=== PATIENT | male | born 1960 | race Caucasian/White ===

== ENCOUNTER → 2016-07-27 | Outpatient (CLI) | payer BC ==
[~2016-07-27] MED LIST: ASPI81TA28 PO; AZEL0.15 NAE; CETI10TA10 PO; DIPH25TA24 PO; MOME50SP5 NAE; PSYL55.43 PO
[2016-07-27 09:39] LABS: BASO % 0.4 %; BASO ABS # 0.02 K/uL (0-0.2); COMPLETE YES; EOS % 2.4 %; HEMATOCRIT 42.5 % (42-52); LYMPH % 31.7 %; MEAN CELL VOLUME 90.8 fL (80-100); MEAN CORPUSCULAR HEMOGLOBIN 30.3 pg (25-34); MEAN CORPUSCULAR HGB CONC 33.4 g/dl (32-36); MEAN PLATELET VOLUME 10.2 fL (7.4-10.4); MONO % 6.5 %; PLATELET COUNT 249 K/uL (130-400); RED BLOOD COUNT 4.68 M/uL (4.7-6.1); WHITE BLOOD COUNT 5.37 K/uL (4.8-10.8)
[2016-07-27 10:08] LABS: ALT/SGPT 37 U/L (12-78); AST/SGOT 13 U/L (15-37); BLOOD UREA NITROGEN 16 mg/dl (7-18); BUN/CREATININE RATIO 13.4 (10-20); CALCIUM 8.7 mg/dl (8.5-10.1); CARBON DIOXIDE 30 mmol/L (21-32); CHLORIDE 106 mmol/L (98-107); GLUCOSE 96 mg/dl (70-99); POTASSIUM 3.8 mmol/L (3.5-5.1); SODIUM 140 mmol/L (136-145)
[2016-07-27 10:19] LABS: ALB/GLOB RATIO 1.5 (0.9-2); ALKALINE PHOSPHATASE 44 U/L (45-117); CHOLESTEROL 177 mg/dl (0-200); CHOLESTEROL/HDL RATIO 2.9; HDL CHOLESTEROL 61 mg/dl; LDL CHOLESTEROL CALCULATED 102 mg/dl; PROSTATE SPECIFIC ANTIGEN 0.629 ng/ml (0.000-4.000); TRIGLYCERIDES 68 mg/dl (0-150); VERY LOW DENSITY LIPOPROT CALC 14 mg/dl
[2016-07-27 10:49] LABS: URINE APPEARANCE CLEAR (CLEAR); URINE BILIRUBIN NEG (NEG); URINE COLOR YELLOW; URINE EPITHELIAL CELL AUTO 0-5 /lpf (0-5); URINE NITRITE NEG (NEG); URINE SPECIFIC GRAVITY 1.008 (1.000-1.030); UROBILINOGEN NEG (NEG); ZZUR CULT IF INDIC CLEAN CATCH NO
[2016-07-27 11:09] LABS: MANUAL MICROSCOPIC REQUIRED? NO; REVIEW REQ? NO
== END | disposition home or self-care (01) ==
LOC: C.LAB 08:42
PROVIDERS: ATTEND Internal Medicine
DX: M54.16 Radiculopathy, lumbar region (principal); Z13.6 Encounter for screening for cardiovascular disorders; Z12.5 Encounter for screening for malignant neoplasm of prostate

== ENCOUNTER 2020-06-25 14:45 | Inpatient (IN) ==
[2020-06-25] MEDS ORDERED: dexAMETHasone**PF** 10 MG/ML VIAL IV ONE (17:45)
[2020-06-25] MEDS ORDERED: KETOROLAC TROMETHAMINE 15 MG/ML VIAL IV STA (17:45)
[2020-06-25] MEDS ORDERED: IPRATROPIUM BROMIDE/ALBUTEROL respimat INH INH STA (17:45)
[2020-06-25] MEDS ORDERED: ACETAMINOPHEN 1,000 MG/100 ML VIAL IV STA (17:45)
[2020-06-25] MEDS ORDERED: SODIUM CHLORIDE 0.9% 1000ML 2,000 ML IV ONE (17:45)
[2020-06-25] MEDS ORDERED: guaiFENesin 600 MG TABCR PO STA (17:46)
--- NOTE | 2020-06-25 18:08 | XRay Report ---
XR chest 1V portable HISTORY: 59 years-old Male Chest Pain acute atypical chest pain COMPARISON: Chest radiograph 06/23/2020 TECHNIQUE: Portable AP view of the chest FINDINGS: Cardiac silhouette is upper limits of normal in size. Progressively worsened bilateral subpleural pre dominant left greater than right pulmonary opacities. No pneumothorax, large pleural effusion or over t pulmonary edema. Bones appear grossly intact. IMPRESSION: Progressively worsened bilateral subpleural predominant pulmonary opacities suggestive of viral pneumonia. ACT 112: Negative or not required by law. The above report was generated using voice recognition software. It may contain grammatical, syntax o r spelling errors. Electronically signed by: Paresh Pascual M.D. 06/25/2020 6:06 PM
[2020-06-25 19:02] LABS: Hematocrit (blood only) 34.2 % (42-52); Hemoglobin 11.9 g/dL (14.0-18.0); Immature Granulocytes # (auto) 0.01 K/uL (0.00-0.02); Immature Granulocytes % (auto) 0.3 %; Lymphocytes % (auto) 15.2 %; Mean Corpuscular Hemoglobin 30.5 pg (25-34); Mean Corpuscular Hgb Conc 34.8 g/dL (32-36); Mean Corpuscular Volume 87.7 fL (80-100); Mean Platelet Volume 10.5 fL (7.4-10.4); Monocytes # (auto) 0.14 K/uL (0.11-0.59); Monocytes % (auto) 4.3 %; Neutrophils # (auto) 2.63 K/uL (1.4-6.5); Neutrophils % (auto) 80.2 %; Platelet Count 143 K/uL (130-400); RDW Coefficient of Variation 12.4 % (11.5-14.5); White Blood Count 3.28 K/uL (4.8-10.8)
[2020-06-25 19:25] LABS: Alanine Aminotransferase 29 U/L (12-78); Albumin Level 3.5 gm/dl (3.4-5.0); Aspartate Aminotransferase 22 U/L (15-37); BUN Creatinine Ratio 10.1 (10-20); Bilirubin Direct 0.1 mg/dl (0-0.2); Blood Urea Nitrogen 11 mg/dl (7-18); Carbon Dioxide 28 mmol/L (21-32); Chloride 106 mmol/L (98-107); Creatinine Clr Calc Pharmacy 84.7 ml/min; Est GFR (African American) 91.9; Est GFR (Non-African American) 79.3; Glucose 98 mg/dl (70-99); Lipase 190 U/L (73-393); Magnesium 2.1 mg/dl (1.8-2.4); Potassium 3.5 mmol/L (3.5-5.1); Sodium 139 mmol/L (136-145)
[2020-06-25 19:31] LABS: Albumin Globulin Ratio 1.3 (0.9-2); Alkaline Phosphatase 33 U/L (45-117); Bilirubin,Total 0.8 mg/dl (0.2-1); Creatine Kinase 75 U/L (39-308); Globulin 2.8 gm/dl (2.5-4.0); NT Pro B Type Natriuretic Pept 208 pg/ml (0-900); Phosphorus 2.8 mg/dl (2.5-4.9); Total Protein 6.3 gm/dl (6.4-8.2); Troponin I < 0.015 ng/ml (0-0.045)
[2020-06-25] MEDS ORDERED: OPTIRAY 320 125ml IV ONE (20:22)
--- NOTE | 2020-06-25 20:43 | CT Scan Report ---
CT angio chest PE protocol CT DOSE: 393.21 mGy.cm HISTORY: 59 years-old Male with Covid, hemoptysis, r/o PE. Acute shortness of breath with hemoptysi s. COVID Positive. TECHNIQUE: Multiple CTA images of the chest were obtained after the intravenous administration of Opt iray 320. Coronal and sagittal MIPS were obtained from the axial data set and were submitted for rev iew. All measurements were obtained according to NASCET criteria. A dose lowering technique was util ized adhering to the principles of ALARA. COMPARISON: Chest radiograph of same day, 06/23/2020 FINDINGS: CTA: The heart is normal in size. Moderate coronary artery calcifications. No thoracic aortic aneurysm or dissection. Reflux of contrast into the IVC. Suboptimal evaluation of the pulmonary artery secondary to respiratory motion artifact. No central pulmonary emboli identified. CT CHEST: Unremarkable thyroid. Mild mediastinal and hilar adenopathy with hilar lymph nodes measuring up to 12 mm and subcarinal lymph nodes measuring up to 11 mm. Trace pleural effusions. Moderate bilateral sub pleural predominant groundglass and consolidative opacities have progressively worsened from 1. No overt pulmonary edema or suspicious pulmonary nodules identified. Central airways appear patent . No pneumoperitoneum. No acute process of the imaged upper abdomen. Wall thickening of the mid and dis sukhjinder esophagus. Unremarkable soft tissues. There is no acute fracture. IMPRESSION: 1. Limited study secondary to respiratory motion artifact. No central pulmonary emboli identified. 2. Moderate subpleural predominant groundglass and airspace opacities of the lungs have progressively worsened from 06/23/2020 suggestive of viral pneumonia. 3. Trace pleural effusions. 4. Mild mediastinal and hilar adenopathy, likely reactive. ACT 112: Negative or not required by law. The above report was generated using voice recognition software. It may contain grammatical, syntax o r spelling errors. Electronically signed by: Paresh Pascual M.D. 06/25/2020 8:42 PM
--- NOTE | 2020-06-25 22:04 | History & Physical Report ---
Date of Service June 25, 2020 Assessment & Plan (1) Pneumonia due to COVID-19 virus: 59yo C male presenting with Covid-19 pneumonia, hypoxia. Patient is on day 9 of illness. Patient hypoxic requiring supplemental O2 -Admit to medical with telemetry -Maintain isolation precautions - contact and airborne -Supplemental O2 as needed -Check CRP, CK, Ddimer, Ferritin, Procalcitonin and LDH -Dexamethasone 6mg IV daily -Remdesevir per protocol -Albuterol, Tylenol, Tessalon PRN -Lovenox 40 BID for DVT ppx -Patient has been persistently febrile x 9 days and has been coughing up blood tinged sputum as well. Most likely secondary to Covid-19 PNA as well as systemic inflammation. Will cover with empiric antibiotics for possible CAP - Azithromycin and Ceftriaxone Present on Admission?: Yes (2) GERD (gastroesophageal reflux disease): Chronic. Stable -Continue Protonix F/E/N - Heplock. Monitor electrolytes. Regular diet as tolerated Ppx - Lovenox 40 BID Code - Full Dispo - Admit to medical Present on Admission?: Yes History of Present Illness Chief Complaint: Covid-19 Primary Care Provider: Francisco Ghotra MD Thomas Cantu is a healthy 59yo C male presenting with Covid-19. His symptoms began appx 9 days ago with fatigue, body aches, fever, cough and shortness of breath. Symptoms have persisted over the last 9 days. Patient states he has been febrile x 9 days. His cough and SOB have worsened over the last 2 days. He has been having heart palpitations as well. He states he occasionally coughs up small amounts of blood tinged sputum. He has been monitoring his oxygen saturation at home and reports that this AM he was 88% on room air. In the ER he was found to be tachypneic. Saturations 92% on room air. Patient dyspneic after ambulation with saturation of 87% ER Course: Tylenol, Albuterol, Guaifenesin, Dexamethasone, Toradol 15mg, NSS x 2L Allergies Allergy/AdvReac Type Severity Reaction Status Date / Time house dust Allergy Mild NASAL Verified 06/24/20 13:53 CONGESTION weed pollen Allergy Mild NASAL Verified 06/24/20 13:53 CONGESTION moxifloxacin [From Avelox] AdvReac Severe Rash Verified 06/24/20 13:53 cimetidine AdvReac Intermediate confusion, Verified 06/24/20 13:53 depression gluten AdvReac Intermediate BLOATING Verified 06/24/20 13:53 WITH WHEAT PRODUCTS Home Medications Medication Instructions Recorded Confirmed Type diphenhydramine HCl 25 mg capsule 25 mg PO HS PRN cap 11/09/18 06/25/20 History cetirizine 10 mg tablet 10 mg PO QAM #30 tab 06/25/19 06/25/20 Rx fluticasone propionate 1 sprays INTNAS BID 09/06/19 06/25/20 History albuterol sulfate 3 inh INHALATION Q6H #18 g 06/23/20 06/25/20 Rx aspirin 81 mg PO QAM 06/23/20 06/25/20 History azelastine 2 spray INTRANASAL DAILY PRN 06/23/20 06/25/20 History benzonatate [Tessalon Perles] 100 mg PO TID PRN #20 cap 06/23/20 06/25/20 Rx pantoprazole 40 mg PO QAM 06/23/20 06/25/20 History Past Med/Surg History Medical History Anemia GERD (gastroesophageal reflux disease) Surgical History H/O wisdom tooth extraction History of anesthesia reaction BLURRED VISION, SWEATS, DIZZINESS,NAUSEA, TUNNEL VISION, POST OP MOHS NOSE UNDER LOCAL [id number] [facility] D[facility] History of colonoscopy Incarcerated umbilical hernia (11/26/13) Status post Mohs surgery X 3-NOSE Family History (Updated 12/25/19 @ 11:22 by Cari Reardon MA) Father Diabetes Hypertension Heart disease Myocardial infarction Brother Myocardial infarction Mother Hyperlipidemia Hearing loss Breast cancer Denies family history of Ovarian cancer Prostate cancer Colorectal cancer Social History Smoking Status: Never smoker Second Hand Exposure: No; Hx Alcohol Use: Yes Alcohol type: beer Hx Substance Use: No Preferred Language: Occitan Communication Ability: Effective Visual Impairment: Limited Hearing Ability: Normal Batch Tank Controller Required: No Beliefs That Will Affect Care: None marital status: Current Living Situation: Spouse current occupational status: employed current occupation: sales engineer Feels Safe at Home: Yes Childhood Exposure to Second-Hand Smoke: No caffeine: Yes during the past year weight has: remained stable Dental Care, Regularly: Yes Physical Activity Frequency: Daily Seatbelt Use: always Sunscreen Use: Yes Assistive Devices: Contacts and Glasses Review of Systems Review of Systems: All systems reviewed & are unremarkable except as noted in HPI & below Physical Exam Physical Exam: General: patient resting comfortably, NAD, non-toxic in appearance, AA&O x 4 Skin: warm, dry, intact, no rashes or lesions HEENT: NC/AT, PERRL, EOMI, anicteric sclera, conjunctiva without injection, external ear normal to inspection and nontender, nares patent, moist mucus membranes, dentition intact, no oropharyngeal lesions, neck supple, trachea midline, no LAD, no thyromegaly, no JVD Heart: +S1/S2, regular, no m/r/g Lungs: equal air entry bilaterally, crackles in bilateral bases, no rhonchi or wheezes Abd: +BS, soft, NT/ND, no masses/organomegaly/ascites Ext: warm, 2+ pulses in UE/LE bilaterally, no clubbing/cyanosis or edema Neuro: nonfocal, patient AA&O x 4, speech intact, no facial droop, moving all extremities on command with equal strength 5/5 Results & Data Results & Data ([facility]) Vital Signs (Past 12 Hours) Vital Signs Temp Pulse Pulse Resp BP BP Pulse Ox 06/25/20 21:30 62 26 H 95 06/25/20 21:00 67 19 92 06/25/20 20:37 37.4 C 06/25/20 20:31 72 30 H 94 06/25/20 20:30 69 22 119/74 92 06/25/20 20:29 69 18 112/68 06/25/20 20:01 70 23 94 06/25/20 20:00 72 27 H 103/65 94 06/25/20 19:31 66 28 H 94 06/25/20 19:30 37.8 C H 69 29 H 119/68 94 06/25/20 19:01 90 34 H 91 06/25/20 19:00 73 32 H 110/71 95 06/25/20 18:52 72 29 H 113/73 95 06/25/20 18:47 63 22 113/73 95 06/25/20 18:30 65 36 H 99 06/25/20 18:22 63 98 06/25/20 18:00 63 30 H 98 06/25/20 17:30 66 28 H 96 06/25/20 17:13 57 L 31 H 95 06/25/20 17:06 72 24 95 06/25/20 15:14 36.8 C 74 20 115/68 95 Laboratory Results Lab Results 06/25/20 06/25/20 Range/Units 18:40 18:40 WBC 3.28 L (4.8-10.8) K/uL RBC 3.90 L (4.7-6.1) M/uL Hgb 11.9 L (14.0-18.0) g/dL Hct 34.2 L (42-52) % MCV 87.7 (80-100) fL MCH 30.5 (25-34) pg MCHC 34.8 (32-36) g/dL RDW Std Deviation 40.0 (36.4-46.3) fL RDW Coeff of Debo 12.4 (11.5-14.5) % Plt Count 143 (130-400) K/uL MPV 10.5 H (7.4-10.4) fL Immature Gran % (Auto) 0.3 % Neut % (Auto) 80.2 % Lymph % (Auto) 15.2 % Rosebud % (Auto) 4.3 % Eos % (Auto) 0.0 % Baso % (Auto) 0.0 % Neut # (Auto) 2.63 (1.4-6.5) K/uL Lymph # (Auto) 0.50 L (1.2-3.4) K/uL Rosebud # (Auto) 0.14 (0.11-0.59) K/uL Eos # (Auto) 0.00 (0-0.5) K/uL Baso # (Auto) 0.00 (0-0.2) K/uL Immature Gran # (Auto) 0.01 (0.00-0.02) K/uL Sodium 139 (136-145) mmol/L Potassium 3.5 (3.5-5.1) mmol/L Chloride 106 (98-107) mmol/L Carbon Dioxide 28 (21-32) mmol/L Anion Gap 5.0 (3-11) BUN 11 (7-18) mg/dl Creatinine 1.04 (0.6-1.4) mg/dl Est Cr Clr Drug Dosing 84.7 ml/min Est GFR ( Amer) 91.9 Est GFR (Non-Af Amer) 79.3 BUN/Creatinine Ratio 10.1 (10-20) Glucose 98 (70-99) mg/dl Calcium 8.0 L (8.5-10.1) mg/dl Phosphorus 2.8 (2.5-4.9) mg/dl Magnesium 2.1 (1.8-2.4) mg/dl Total Bilirubin 0.8 (0.2-1) mg/dl Direct Bilirubin 0.1 (0-0.2) mg/dl AST 22 (15-37) U/L ALT 29 (12-78) U/L Alkaline Phosphatase 33 L (45-117) U/L Total Creatine Kinase 75 (39-308) U/L Troponin I < 0.015 (0-0.045) ng/ml NT-Pro-B Natriuret Pep 208 (0-900) pg/ml Total Protein 6.3 L (6.4-8.2) gm/dl Albumin 3.5 (3.4-5.0) gm/dl Globulin 2.8 (2.5-4.0) gm/dl Albumin/Globulin Ratio 1.3 (0.9-2) Lipase 190 (73-393) U/L TSH 1.290 (0.300-4.500) uIu/ml Diagnostic Findings CT angio chest PE protocol CT DOSE: 393.21 mGy.cm HISTORY: 59 years-old Male with Covid, hemoptysis, r/o PE. Acute shortness of breath with hemoptysis. COVID Positive. TECHNIQUE: Multiple CTA images of the chest were obtained after the intravenous administration of Optiray 320. Coronal and sagittal MIPS were obtained from the axial data set and were submitted for review. All measurements were obtained according to NASCET criteria. A dose lowering technique was utilized adhering to the principles of ALARA. COMPARISON: Chest radiograph of same day, 06/23/2020 FINDINGS: CTA: The heart is normal in size. Moderate coronary artery calcifications. No thoracic aortic aneurysm or dissection. Reflux of contrast into the IVC. Suboptimal evaluation of the pulmonary artery secondary to respiratory motion artifact. No central pulmonary emboli identified. CT CHEST: Unremarkable thyroid. Mild mediastinal and hilar adenopathy with hilar lymph nodes measuring up to 12 mm and subcarinal lymph nodes measuring up to 11 mm. Trace pleural effusions. Moderate bilateral subpleural predominant groundglass and consolidative opacities have progressively worsened from 06/23/2020. No overt pulmonary edema or suspicious pulmonary nodules identified. Central airways appear patent. No pneumoperitoneum. No acute process of the imaged upper abdomen. Wall thickening of the mid and distal esophagus. Unremarkable soft tissues. There is no acute fracture. IMPRESSION: 1. Limited study secondary to respiratory motion artifact. No central pulmonary emboli identified. 2. Moderate subpleural predominant groundglass and airspace opacities of the lungs have progressively worsened from 06/23/2020 suggestive of viral pneumonia. 3. Trace pleural effusions. 4. Mild mediastinal and hilar adenopathy, likely reactive. ACT 112: Negative or not required by law. The above report was generated using voice recognition software. It may contain grammatical, syntax or spelling errors. Electronically signed by: Paresh Pascual M.D. 06/25/2020 8:42 PM Dictated: 06/25/202033Transcribed: 06/25/202033 XR chest 1V portable HISTORY: 59 years-old Male Chest Pain acute atypical chest pain COMPARISON: Chest radiograph 06/23/2020 TECHNIQUE: Portable AP view of the chest FINDINGS: Cardiac silhouette is upper limits of normal in size. Progressively worsened bilateral subpleural predominant left greater than right pulmonary opacities. No pneumothorax, large pleural effusion or overt pulmonary edema. Bones appear grossly intact. IMPRESSION: Progressively worsened bilateral subpleural predominant pulmonary opacities suggestive of viral pneumonia. ACT 112: Negative or not required by law. The above report was generated using voice recognition software. It may contain grammatical, syntax or spelling errors. Electronically signed by: Paresh Pascual M.D. 06/25/2020 6:06 PM Dictated: 06/25/201804Transcribed: 06/25/201804 ECG Additional Comments: NSR 69bpm, RW=291, QRS=96, GEu=998, no acute ischemic changes Code Status & VTE Plan VTE Prophylaxis Plan VTE Prophylaxis will be ordered: Yes PG Care Time/CCT Total # of Minutes Spent Total Time Spent with Patient: Total time spent is greater than 50% in coordin ation of care (as documented) at patient's floor/unit and/or counseling patient: Coding Level of Care Code 86571 Initial Inpt Care Lvl 2 Diagnoses Pneumonia due to COVID-19 virus U07.1; J12.82 GERD (gastroesophageal reflux disease) K21.9 Esophagitis presence: esophagitis presence not specified (1) GERD (gastroesophageal reflux disease) Esophagitis presence: esophagitis presence not specified Qualified Code(s): K21.9 - Gastro-esophageal reflux disease without esophagitis
--- NOTE | 2020-06-25 22:59 | Emergency Department Note ---
Impression & Plan Pneumonia due to COVID-19 virus, Low O2 saturation, Dyspnea on minimal exertion ED Provider Note NAME: BEKA GREENWOOD AGE: 59 SEX: M ARRIVES VIA: Walk-In INFORMANT: Patient, ED PROVIDER(S): Ashu Gordon MD CHIEF COMPLAINT: Covid-19, Shortness of breath PLAN: Disposition: Admit MEDICAL DECISION MAKING: The patient is a pleasant 59-year-old gentleman with a past medical history of GERD, prediabetes who presents emergency department with worsening congestion shortness of breath and ongoing fevers in the setting of being diagnosed with COVID-19 with symptoms that began approximately 9 days ago with positive Covid test on 06/20. He reports his O2 saturation was 88% today on his home pulse oximeter in the setting of his increased chest tightness with cough where he reports some blood-tinged sputum developing. He reports nausea but no vomiting. He denies abdominal pain but reports his stools have been loose. He denies any urinary symptoms. This is the patient's third visit to the emergency department in the past 3 days for his Covid symptoms initially on 06/23 and then yesterday 06/24. However, today he reports he is feeling even worse. On arrival the patient is anxious appearing uncomfortable, mildly dyspneic but no acute distress, afebrile with stable vital signs. His O2 saturation was mostly 95-96% on room air though with continued dyspnea and did decrease 94% and so given his dyspnea was placed on 2 L nasal cannula with some improvement though ultimately having O2 saturation as low as 91%. He appears clinically dry. He has scattered wheezes and is diminished at the bases. EKG without overt acute ischemia. Chest x-ray shows progressed multifocal pneumonia consistent with COVID-19. WBC 3.2 with lymphopenia of 0.5, H/H 11.9/34.2 and platelets 143K all similar to recent range of values in the setting of his COVID-19. Chemistry without metabolic acidosis. Electrolytes and LFTs unremarkable. Troponin negative/undetectable and BNP within normal limits. While patient did have a negative D-dimer yesterday given his report of hemoptysis CTA of the chest was performed and limited due to motion artifact but no central PE noted. His progressive multifocal pneumonia is further characterized. Given the patient's worsening dyspnea in the setting of COVID-19 with progression of infiltrates on imaging reasonable to admit the patient for further management. Patient agreed and preferred this. Case was discussed with SHAWN Russ hospitalist, who will evaluate the patient for admission. Triage Nursing notes reviewed and agree them. Prior medical records reviewed Vital Signs: reviewed and remarkable for low O2 saturation. Differential diagnosis: Reactive airway disease, pneumonia, pneumothorax, COPD, CHF, infections, cardiac ischemia, pulmonary embolism, musculoskeletal, gastrointestinal, as well as other pathologies. ER treatment provided: See below. Diagnostics interpreted by me: ECG: Normal sinus rhythm, 69 bpm, no ectopy, no overt ST elevation or depression, QTC 411, QRS 96. Cardiac Monitoring: An order for continuous cardiac monitoring was placed and demonstrated normal sinus rhythm, 69 bpm, no ectopy. Laboratory studies: See below Imaging studies: See below Consultations: SHAWN Russ hospitalist. HPI: The patient is a pleasant 59-year-old gentleman with a past medical history of GERD, prediabetes who presents emergency department with worsening congestion shortness of breath and ongoing fevers in the setting of being diagnosed with COVID-19 with symptoms that began approximately 9 days ago with positive Covid test on 06/20. He reports his O2 saturation was 88% today on his home pulse oximeter in the setting of his increased chest tightness with cough where he r eports some blood-tinged sputum developing. He reports nausea but no vomiting. He denies abdominal pain but reports his stools have been loose. He denies any urinary symptoms. This is the patient's third visit to the emergency department in the past 3 days for his Covid symptoms initially on 06/23 and then yesterday 06/24. However, today he reports he is feeling even worse. ROS: See above HPI for pertinent positives & negatives. A total of 10 systems reviewed and were otherwise negative. PAST MEDICAL HISTORY:See Below PAST SURGICAL HISTORY:See Below FAMILY HISTORY:See Below SOCIAL HISTORY:See Below HOME MEDICATIONS:See Below ALLERGIES:See Below VITALS:See Below PHYSICAL EXAMINATION: GENERAL: Awake, alert, fatigued-appearing, in no distress HENT: Normocephalic, atraumatic. Oropharynx with dry mucous membranes and otherwise unremarkable. EYES: Normal conjunctiva. Sclera non-icteric. NECK: Supple. No nuchal rigidity. FROM. No JVD. RESPIRATORY: Scattered wheezes and diminished at the bases. Mildly dyspneic without significant increased work of breathing. CARDIAC: Regular rate, normal rhythm. Extremities warm and well perfused. Pulses equal. ABDOMEN: Soft, non-distended. No tenderness to palpation. No rebound or guarding. No masses. RECTAL: Deferred. MUSCULOSKELETAL: Chest examination reveals no tenderness. The back is symmetrical on inspection without obvious abnormality. There is no CVA tenderness to palpation. No joint edema. LOWER EXTREMITIES: Calves are equal size bilaterally and non-tender. No edema. No discoloration. NEURO: Normal sensorium. No sensory or motor deficits noted. SKIN: No rash or jaundice noted. Ashu Gordon MD Past Med/Surg History Medical History Anemia GERD (gastroesophageal reflux disease) Surgical History H/O wisdom tooth extraction History of anesthesia reaction BLURRED VISION, SWEATS, DIZZINESS,NAUSEA, TUNNEL VISION, POST OP MOHS NOSE UNDER LOCAL [id number] [facility] History of colonoscopy Incarcerated umbilical hernia (11/26/13) Status post Mohs surgery X 3-NOSE Family History (Updated 12/25/19 @ 11:22 by Cari Reardon MA) Father Diabetes Hypertension Heart disease Myocardial infarction Brother Myocardial infarction Mother Hyperlipidemia Hearing loss Breast cancer Denies family history of Ovarian cancer Prostate cancer Colorectal cancer Social History Smoking Status: Never smoker Second Hand Exposure: No; Hx Alcohol Use: Yes Alcohol type: beer Hx Substance Use: No Preferred Language: Kyrgyz Communication Ability: Effective Visual Impairment: Limited Hearing Ability: Normal Wet Primer Powder Blender Required: No Beliefs That Will Affect Care: None marital status: Current Living Situation: Spouse current occupational status: employed current occupation: back end engineer Feels Safe at Home: Yes Childhood Exposure to Second-Hand Smoke: No caffeine: Yes during the past year weight has: remained stable Dental Care, Regularly: Yes Physical Activity Frequency: Daily Seatbelt Use: always Sunscreen Use: Yes Assistive Devices: Contacts and Glasses Allergies Allergies Allergy/AdvReac Type Severity Reaction Status Date / Time house dust Allergy Mild NASAL Verified 06/24/20 13:53 CONGESTION weed pollen Allergy Mild NASAL Verified 06/24/20 13:53 CONGESTION moxifloxacin [From Avelox] AdvReac Severe Rash Verified 06/24/20 13:53 cimetidine AdvReac Intermediate confusion, Verified 06/24/20 13:53 depression gluten AdvReac Intermediate BLOATING Verified 06/24/20 13:53 WITH WHEAT PRODUCTS Home Meds Home Medications Medication Instructions Recorded Confirmed diphenhydramine HCl 25 mg capsule 25 mg PO HS PRN cap 11/09/18 06/25/20 fluticasone propionate 1 sprays INTNAS BID 09/06/19 06/25/20 aspirin 81 mg PO QAM 06/23/20 06/25/20 azelastine 2 spray INTRANASAL DAILY PRN 06/23/20 06/25/20 pantoprazole 40 mg PO QAM 06/23/20 06/25/20 Previous Rx's Medication Instructions Recorded cetirizine 10 mg tablet 10 mg PO QAM #30 tab 06/25/19 albuterol sulfate 3 inh INHALATION Q6H #18 g 06/23/20 benzonatate [Tessalon Perles] 100 mg PO TID PRN #20 cap 06/23/20 Results & Data (ED) Vital Signs Vital Signs - 24 hr 06/25/20 15:14 06/25/20 17:06 06/25/20 17:13 Temperature 36.8 C Temperature Source Temporal Artery Scan Pulse Rate 74 72 57 L Pulse Rate [Left] Pulse Rate from SpO2 Sensor 58 L Respiratory Rate 20 24 31 H Respiratory Effort / Characteristics Short of Breath Respiratory Pattern Regular Blood Pressure 115/68 Blood Pressure [Left Arm] Blood Pressure Mean 83 Blood Pressure Mean [Left Arm] Blood Pressure Position [Left Arm] Pulse Oximetry 95 95 95 Oxygen Delivery Method Room Air Room Air Oxygen Flow Rate Sepsis Recent Fever Within 48 Hours No Sepsis New/Unexplained Change in Mental Status N/A Sepsis Action Taken by Nursing No Action Required 06/25/20 17:30 06/25/20 18:00 06/25/20 18:22 Temperature Temperature Source Pulse Rate 66 63 63 Pulse Rate [Left] Pulse Rate from SpO2 Sensor 66 63 Respiratory Rate 28 H 30 H Respiratory Effort / Characteristics Respiratory Pattern Blood Pressure Blood Pressure [Left Arm] Blood Pressure Mean Blood Pressure Mean [Left Arm] Blood Pressure Position [Left Arm] Pulse Oximetry 96 98 98 Oxygen Delivery Method Nasal Cannula Oxygen Flow Rate Sepsis Recent Fever Within 48 Hours Sepsis New/Unexplained Change in Mental Status Sepsis Action Taken by Nursing 06/25/20 18:30 06/25/20 18:47 06/25/20 18:52 Temperature Temperature Source Pulse Rate 65 63 Pulse Rate [Left] 72 Pulse Rate from SpO2 Sensor 65 66 Respiratory Rate 36 H 22 29 H Respiratory Effort / Characteristics Spontaneous Respiratory Pattern Blood Pressure 113/73 Blood Pressure [Left Arm] 113/73 Blood Pressure Mean 86 Blood Pressure Mean [Left Arm] 86 Blood Pressure Position [Left Arm] Lying Pulse Oximetry 99 95 95 Oxygen Delivery Method Nasal Cannula Oxygen Flow Rate 2 Sepsis Recent Fever Within 48 Hours Sepsis New/Unexplained Change in Mental Status Sepsis Action Taken by Nursing 06/25/20 19:00 06/25/20 19:01 06/25/20 19:30 Temperature 37.8 C H Temperature Source Oral Pulse Rate 73 90 69 Pulse Rate [Left] Pulse Rate from SpO2 Sensor 75 67 68 Respiratory Rate 32 H 34 H 29 H Respiratory Effort / Characteristics Respiratory Pattern Blood Pressure 110/71 119/68 Blood Pressure [Left Arm] Blood Pressure Mean 84 85 Blood Pressure Mean [Left Arm] Blood Pressure Position [Left Arm] Pulse Oximetry 95 91 94 Oxygen Delivery Method Oxygen Flow Rate Sepsis Recent Fever Within 48 Hours Sepsis New/Unexplained Change in Mental Status Sepsis Action Taken by Nursing 06/25/20 19:31 06/25/20 20:00 06/25/20 20:01 Temperature Temperature Source Pulse Rate 66 72 70 Pulse Rate [Left] Pulse Rate from SpO2 Sensor 66 73 70 Respiratory Rate 28 H 27 H 23 Respiratory Effort / Characteristics Respiratory Pattern Blood Pressure 103/65 Blood Pressure [Left Arm] Blood Pressure Mean 77 Blood Pressure Mean [Left Arm] Blood Pressure Position [Left Arm] Pulse Oximetry 94 94 94 Oxygen Delivery Method Oxygen Flow Rate Sepsis Recent Fever Within 48 Hours Sepsis New/Unexplained Change in Mental Status Sepsis Action Taken by Nursing 06/25/20 20:29 06/25/20 20:30 06/25/20 20:31 Temperature Temperature Source Pulse Rate 69 69 72 Pulse Rate [Left] Pulse Rate from SpO2 Sensor 70 73 Respiratory Rate 18 22 30 H Respiratory Effort / Characteristics Respiratory Pattern Blood Pressure 112/68 119/74 Blood Pressure [Left Arm] Blood Pressure Mean 82 89 Blood Pressure Mean [Left Arm] Blood Pressure Position [Left Arm] Pulse Oximetry 92 94 Oxygen Delivery Method Oxygen Flow Rate Sepsis Recent Fever Within 48 Hours Sepsis New/Unexplained Change in Mental Status Sepsis Action Taken by Nursing 06/25/20 20:37 06/25/20 21:00 06/25/20 21:30 Temperature 37.4 C Temperature Source Oral Pulse Rate 67 62 Pulse Rate [Left] Pulse Rate from SpO2 Sensor 67 63 Respiratory Rate 19 26 H Respiratory Effort / Characteristics Respiratory Pattern Blood Pressure Blood Pressure [Left Arm] Blood Pressure Mean Blood Pressure Mean [Left Arm] Blood Pressure Position [Left Arm] Pulse Oximetry 92 95 Oxygen Delivery Method Nasal Cannula Oxygen Flow Rate 2 Sepsis Recent Fever Within 48 Hours Sepsis New/Unexplained Change in Mental Status Sepsis Action Taken by Nursing Laboratory Data Attestation: I reviewed the patient's lab results. Result diagrams: 06/25/20 18:40 06/25/20 18:40 Lab Results 06/25/20 06/25/20 Range/Units 18:40 18:40 WBC 3.28 L (4.8-10.8) K/uL RBC 3.90 L (4.7-6.1) M/uL Hgb 11.9 L (14.0-18.0) g/dL Hct 34.2 L (42-52) % MCV 87.7 (80-100) fL MCH 30.5 (25-34) pg MCHC 34.8 (32-36) g/dL RDW Std Deviation 40.0 (36.4-46.3) fL RDW Coeff of Debo 12.4 (11.5-14.5) % Plt Count 143 (130-400) K/uL MPV 10.5 H (7.4-10.4) fL Immature Gran % (Auto) 0.3 % Neut % (Auto) 80.2 % Lymph % (Auto) 15.2 % [place] % (Auto) 4.3 % Eos % (Auto) 0.0 % Baso % (Auto) 0.0 % Neut # (Auto) 2.63 (1.4-6.5) K/uL Lymph # (Auto) 0.50 L (1.2-3.4) K/uL [place] # (Auto) 0.14 (0.11-0.59) K/uL Eos # (Auto) 0.00 (0-0.5) K/uL Baso # (Auto) 0.00 (0-0.2) K/uL Immature Gran # (Auto) 0.01 (0.00-0.02) K/uL Sodium 139 (136-145) mmol/L Potassium 3.5 (3.5-5.1) mmol/L Chloride 106 (98-107) mmol/L Carbon Dioxide 28 (21-32) mmol/L Anion Gap 5.0 (3-11) BUN 11 (7-18) mg/dl Creatinine 1.04 (0.6-1.4) mg/dl Est Cr Clr Drug Dosing 84.7 ml/min Est GFR ( Amer) 91.9 Est GFR (Non-Af Amer) 79.3 BUN/Creatinine Ratio 10.1 (10-20) Glucose 98 (70-99) mg/dl Calcium 8.0 L (8.5-10.1) mg/dl Phosphorus 2.8 (2.5-4.9) mg/dl Magnesium 2.1 (1.8-2.4) mg/dl Total Bilirubin 0.8 (0.2-1) mg/dl Direct Bilirubin 0.1 (0-0.2) mg/dl AST 22 (15-37) U/L ALT 29 (12-78) U/L Alkaline Phosphatase 33 L (45-117) U/L Total Creatine Kinase 75 (39-308) U/L Troponin I < 0.015 (0-0.045) ng/ml NT-Pro-B Natriuret Pep 208 (0-900) pg/ml Total Protein 6.3 L (6.4-8.2) gm/dl Albumin 3.5 (3.4-5.0) gm/dl Globulin 2.8 (2.5-4.0) gm/dl Albumin/Globulin Ratio 1.3 (0.9-2) Lipase 190 (73-393) U/L TSH 1.290 (0.300-4.500) uIu/ml Administered Medications Discontinued Medications Albuterol (Ipratropium Glidden/Albuterol Respimat Inh) 2 puffs INH NOW STA Stop: 06/25/20 17:46 Last Admin: 06/25/20 18:45 Dose: 2 puffs Documented by: [id number] Dexamethasone Sodium Phosphate (DexamethasonePf 10 Mg/Ml Vial) 10 mg IV NOW ONE Stop: 06/25/20 17:46 Last Admin: 03/31/21 18:44 Dose: 10 mg Documented by: [id number] Guaifenesin (Guaifenesin 600 Mg Tabcr) 600 mg PO NOW STA Stop: 06/25/20 17:47 Last Admin: 06/25/20 18:44 Dose: 600 mg Documented by: [id number] Sodium Chloride (Nss 1000ml) 2,000 mls @ 999 mls/hr IV .Q2H1M ONE Stop: 06/25/20 19:45 Last Infusion: 06/25/20 21:22 Dose: 0 mls/hr Documented by: [id number] Admin: 06/25/20 18:44 Dose: 999 mls/hr Documented by: [id number] Acetaminophen (Ofirmev) 1,000 mg in 100 mls @ 400 mls/hr IV NOW STA Stop: 06/25/20 17:59 Last Infusion: 06/25/20 19:31 Dose: 0 mls/hr Documented by: [id number] Admin: 06/25/20 18:44 Dose: 400 mls/hr Documented by: [id number] Ioversol (Optiray 320 125ml) 119 ml IV ONCE ONE Stop: 06/25/20 20:23 Last Admin: 06/25/20 20:23 Dose: 119 ml Documented by: [id number] Ketorolac Tromethamine (Ketorolac Tromethamine 15 Mg/Ml Vial) 15 mg IV NOW STA Stop: 06/25/20 17:46 Last Admin: 06/25/20 18:44 Dose: 15 mg Documented by: [id number] Imaging Data Radiologist's Impression: Chest X-Ray 06/25/20 17:41 XR chest 1V portable HISTORY: 59 years-old Male Chest Pain acute atypical chest pain COMPARISON: Chest radiograph 06/23/2020 TECHNIQUE: Portable AP view of the chest FINDINGS: Cardiac silhouette is upper limits of normal in size. Progressively worsened bilateral subpleural predominant left greater than right pulmonary opacities. No pneumothorax, large pleural effusion or overt pulmonary edema. Bones appear grossly intact. IMPRESSION: Progressively worsened bilateral subpleural predominant pulmonary opacities suggestive of viral pneumonia. ACT 112: Negative or not required by law. The above report was generated using voice recognition software. It may contain grammatical, syntax or spelling errors. Electronically signed by: Paresh Pascual M.D. 06/25/2020 6:06 PM Chest CTA 06/25/20 17:47 CT angio chest PE protocol CT DOSE: 393.21 mGy.cm HISTORY: 59 years-old Male with Covid, hemoptysis, r/o PE. Acute shortness of breath with hemoptysis. COVID Positive. TECHNIQUE: Multiple CTA images of the chest were obtained after the intravenous administration of Optiray 320. Coronal and sagittal MIPS were obtained from the axial data set and were submitted for review. All measurements were obtained according to NASCET criteria. A dose lowering technique was utilized adhering to the principles of ALARA. COMPARISON: Chest radiograph of same day, 06/23/2020 FINDINGS: CTA: The heart is normal in size. Moderate coronary artery calcifications. No thoracic aortic aneurysm or dissection. Reflux of contrast into the IVC. Suboptimal evaluation of the pulmonary artery secondary to respiratory motion artifact. No central pulmonary emboli identified. CT CHEST: Unremarkable thyroid. Mild mediastinal and hilar adenopathy with hilar lymph nodes measuring up to 12 mm and subcarinal lymph nodes measuring up to 11 mm. Trace pleural effusions. Moderate bilateral subpleural predominant groundglass and consolidative opacities have progressively worsened from 06/23/2020. No overt pulmonary edema or suspicious pulmonary nodules identified. Central airways appear patent. No pneumoperitoneum. No acute process of the imaged upper abdomen. Wall thickening of the mid and distal esophagus. Unremarkable soft tissues. There is no acute fracture. IMPRESSION: 1. Limited study secondary to respiratory motion artifact. No central pulmonary emboli identified. 2. Moderate subpleural predominant groundglass and airspace opacities of the lungs have progressively worsened from 06/23/2020 suggestive of viral pneumonia. 3. Trace pleural effusions. 4. Mild mediastinal and hilar adenopathy, likely reactive. ACT 112: Negative or not required by law. The above report was generated using voice recognition software. It may contain grammatical, syntax or spelling errors. Electronically signed by: Paresh Pascual M.D. 06/25/2020 8:42 PM Discharge Plan Visit Data Chief Complaint: Illness Stated Complaint: COVID POSITIVE/LOW OXYGEN LEVELS ED Provider: Ashu Gordon Discharge Problem: Pneumonia due to COVID-19 virus, Low O2 saturation, Dyspnea on minimal exertion Forms Stand Alone Forms: [employer] Prescriptions Prescriptions: No Action cetirizine 10 mg tablet 10 mg PO QAM Qty: 30 RF: 5 diphenhydramine HCl 25 mg capsule 25 mg PO HS PRN (Reason: allergy symptoms) RF: 0 fluticasone propionate 50 mcg/actuation spray,suspension 1 sprays INTNAS BID RF: 0 aspirin 81 mg Tablet,Delayed Release (Dr/Ec) 81 mg PO QAM RF: 0 pantoprazole 40 mg tablet,delayed release (DR/EC) 40 mg PO QAM RF: 0 azelastine 137 mcg (0.1 %) aerosol,spray 2 spray intranasal DAILY PRN (Reason: Allergy Symptoms) RF: 0 benzonatate [Tessalon Perles] 100 mg capsule 100 mg PO TID PRN (Reason: cough) Qty: 20 RF: 1 albuterol sulfate 90 mcg/actuation HFA aerosol inhaler 3 inh inhalation Q6H Qty: 18 RF: 2
[2020-06-26] MEDS ORDERED: REMDESIVIR 200 MG in SODIUM CHLORIDE 0.9% 210 ML IV ONE (00:09)
[2020-06-26] MEDS ORDERED: ONDANSETRON INJ 2 MG/ML 2 ML VIAL IV PRN (00:09)
[2020-06-26] MEDS ORDERED: AZITHROMYCIN 500 MG in DEXTROSE 5% 250 ML IV STA (00:09)
[2020-06-26] MEDS ORDERED: BENZONATATE 100 MG CAPSULE PO PRN (00:09)
[2020-06-26] MEDS ORDERED: ALBUTEROL HFA 8 GM INHALER INH PRN (00:09)
[2020-06-26] MEDS: ACETAMINOPHEN 325 MG TAB PO PRN ×2 (03:11→18:55)
[2020-06-26] MEDS: cefTRIAXone SODIUM 2,000 MG in DEXTROSE 5% 50 ML IV SCH (05:20)
[2020-06-26 07:15] LABS: Hematocrit (blood only) 32.2 % (42-52); Hemoglobin 11.3 g/dL (14.0-18.0); Lymphocytes # (auto) 0.32 K/uL (1.2-3.4); Lymphocytes % (auto) 17.8 %; Mean Corpuscular Hemoglobin 30.9 pg (25-34); Mean Corpuscular Hgb Conc 35.1 g/dL (32-36); Mean Platelet Volume 10.7 fL (7.4-10.4); Monocytes % (auto) 5.6 %; Neutrophils # (auto) 1.38 K/uL (1.4-6.5); Neutrophils % (auto) 76.6 %; Platelet Count 139 K/uL (130-400); RDW Coefficient of Variation 12.3 % (11.5-14.5); RDW Standard Deviation 39.8 fL (36.4-46.3); Red Blood Count 3.66 M/uL (4.7-6.1)
[2020-06-26 07:30] LABS: D Dimer 370 ug/L FEU (0-500)
[2020-06-26 07:43] LABS: Albumin Level 2.8 gm/dl (3.4-5.0); Aspartate Aminotransferase 18 U/L (15-37); Bilirubin Direct < 0.1 mg/dl (0-0.2); Blood Urea Nitrogen 9 mg/dl (7-18); C Reactive Protein 3.53 mg/dl (0-0.29); Calcium 7.5 mg/dl (8.5-10.1); Carbon Dioxide 26 mmol/L (21-32); Chloride 109 mmol/L (98-107); Creatinine Clr Calc Pharmacy 92.3 ml/min; Est GFR (African American) 103.9; Est GFR (Non-African American) 89.6; Glucose 161 mg/dl (70-99); Potassium 3.8 mmol/L (3.5-5.1); Sodium 139 mmol/L (136-145)
[2020-06-26 07:48] LABS: Alanine Aminotransferase 25 U/L (12-78); Alkaline Phosphatase 28 U/L (45-117); Bilirubin,Total 0.4 mg/dl (0.2-1); Creatine Kinase 74 U/L (39-308); Ferritin 282.7 ng/ml (8-388); Total Protein 5.7 gm/dl (6.4-8.2)
[2020-06-26] MEDS: dexAMETHasone 6 MG in SYRINGE 0 ML IV SCH (09:23)
[2020-06-26] MEDS: ENOXAPARIN INJ 40 MG/0.4 ML SYR SQ SCH ×2 (09:24→20:12)
[2020-06-26] MEDS: CETIRIZINE HCL 10 MG TABLET PO SCH (09:24)
[2020-06-26] MEDS: PANTOprazole 40 MG TAB PO SCH (09:24)
--- NOTE | 2020-06-26 10:43 | Electrocardiogram Report ---
Test Reason : Blood Pressure : / mmHG Vent. Rate : 069 BPM Atrial Rate : 069 BPM P-R Int : 200 ms QRS Dur : 096 ms QT Int : 384 ms P-R-T Axes : 044 006 017 degrees QTc Int : 411 ms Normal sinus rhythm possible Inferior infarct , age undetermined Abnormal ECG When compared with ECG of 24-JUN-2020 14:03, No significant change was found Confirmed by Francisco Levin ([id number]) on 06/26/2020 10:43:13 AM Referred By: REFERRED SELF Confirmed By:Pollo Levin
--- NOTE | 2020-06-26 11:08 | Hospitalist Progress Note ---
Date of Service June 26, 2020 Assessment & Plan (1) Pneumonia due to COVID-19 virus: 59yo C male presenting with Covid-19 pneumonia, hypoxia. Patient is on day 10 of illness. Patient hypoxic requiring supplemental O2 stable on 2L, no distress, eating a little more, drinking fluids continue dexamethasone 6mg IV daily, day 2 Remdesivir day 2 Zithromax and ceftriaxone day 2 Tylenol PRN supportive care try to wean oxygen as tolerated (2) Hypoxia: acute hypoxia, due to COVID 19 mildly tachypneic but no distress, no labored breathing stable on 2L wean as tolerated (3) Paroxysmal SVT (supraventricular tachycardia): frequent runs of HR in the 140s but then converts back to sinus bradycardia minimal symptoms but he is aware of alarms going off K is 3.6, Mg 2.1, troponin negative will consult cardiology use Lopressor 5mg IV q4 PRN only for sustained tachycardia, lasting more than a minute (4) Heart palpitations: see SVT above (5) GERD (gastroesophageal reflux disease): Chronic. Stable -Continue Protonix F/E/N - Heplock. Monitor electrolytes. Regular diet as tolerated Ppx - Lovenox 40 BID Code - Full Dispo - Admit to medical Admission and Anticipated Discharge Date Admission Date: June 25, 2020 Subjective patient doing well, he ambulated to the toilet, brushed his teeth, washed up, all without oxygen in place returned to bed and I checked his sats, he was 89%, placed on 2L, he was a little tachypneic but not in distress he says he ate breakfast this morning, first good meal he has had in a week no fever/chills, no chest pain, no diarrhea, no nausea he has a dry cough on the monitor he keeps having brief runs of atrial tachycardia, appears like SVT but never lasts more than a few seconds happening more frequently in the evening no symptoms of palpitations or chest pain, he is just aware of them due to the alarm sounding d/w RN, repeat BMP, mag, troponin and use Lopressor 5mg IV PRN for sustained tachycardia typically his HR is in the high 50's, sinus bradycardia, don't want to make him too slow at baseline will ask cardiology to see him tomorrow K is 3.6, Mg 2.1 and troponin < 0.015 Review of Systems Review of Systems: All systems reviewed & are unremarkable except as noted in Subjective Physical Exam Constitutional: WD/WN, vitals as above + ill appearing; no acute distress Neck: trachea midline, no thyromegaly Respiratory: normal respiratory effort, lungs clear to auscultation Cardiovascular: Rate/Rhythm: regular rhythm and + bradycardic Heart Sounds: normal S1 and normal S2; no murmur Extremities: normal capillary refill; no edema Gastrointestinal (Abdomen): normal bowel sounds, soft, nontender, no hepatosplenomegaly Musculoskeletal: no cyanosis or clubbing, extremities motor strength 5/5 Skin: no rashes, warm and dry Neurologic: patellar DTR's 2+ bilat, sensation intact and PERRL, EOMI, accommodation nl, no face palsy, no dysarthria Psychiatric: A+Ox3, euthymic affect Lymphatic: no cervical or axillary lymphadenopathy Results & Data Results & Data ([facility]) Vital Signs (Past 12 Hours) Vital Signs Temp Pulse Pulse Resp BP BP Pulse Ox 06/26/20 07:29 37.1 C 56 L 25 H 105/67 95 06/26/20 03:01 37.4 C 64 16 116/67 95 06/26/20 00:30 36.9 C 61 20 134/74 90 06/26/20 00:00 56 L 06/25/20 23:24 56 L 18 112/71 94 Laboratory Results Laboratory Results - last 24 hr 06/26/20 06/26/20 06/26/20 06:44 06:44 06:44 WBC 1.80 L RBC 3.66 L Hgb 11.3 L Hct 32.2 L MCV 88.0 MCH 30.9 MCHC 35.1 RDW Std Deviation 39.8 RDW Coeff of Debo 12.3 Plt Count 139 MPV 10.7 H Immature Gran % (Auto) 0.0 Neut % (Auto) 76.6 Lymph % (Auto) 17.8 [place] % (Auto) 5.6 Eos % (Auto) 0.0 Baso % (Auto) 0.0 Neut # (Auto) 1.38 L Lymph # (Auto) 0.32 L [place] # (Auto) 0.10 L Eos # (Auto) 0.00 Baso # (Auto) 0.00 Immature Gran # (Auto) 0.00 D-Dimer 370 Sodium 139 Potassium 3.8 Chloride 109 H Carbon Dioxide 26 Anion Gap 4.0 BUN 9 Creatinine 0.94 Est Cr Clr Drug Dosing 92.3 Est GFR ( Amer) 103.9 Est GFR (Non-Af Amer) 89.6 BUN/Creatinine Ratio 10.0 Glucose 161 H Calcium 7.5 L Magnesium Ferritin 282.7 Total Bilirubin 0.4 Direct Bilirubin < 0.1 AST 18 ALT 25 Alkaline Phosphatase 28 L Lactate Dehydrogenase Total Creatine Kinase 74 Troponin I C-Reactive Protein 3.53 H Total Protein 5.7 L Albumin 2.8 L Procalcitonin 06/26/20 06/26/20 06/26/20 06:44 06:44 19:04 WBC RBC Hgb Hct MCV MCH MCHC RDW Std Deviation RDW Coeff of Debo Plt Count MPV Immature Gran % (Auto) Neut % (Auto) Lymph % (Auto) [place] % (Auto) Eos % (Auto) Baso % (Auto) Neut # (Auto) Lymph # (Auto) [place] # (Auto) Eos # (Auto) Baso # (Auto) Immature Gran # (Auto) D-Dimer Sodium 140 Potassium 3.6 Chloride 110 H Carbon Dioxide 27 Anion Gap 4.0 BUN 14 D Creatinine 1.07 Est Cr Clr Drug Dosing 81.1 Est GFR ( Amer) 88.8 Est GFR (Non-Af Amer) 76.7 BUN/Creatinine Ratio 12.6 Glucose 152 H Calcium 7.8 L Magnesium 2.1 Ferritin Total Bilirubin Direct Bilirubin AST ALT Alkaline Phosphatase Lactate Dehydrogenase 251 H Total Creatine Kinase Troponin I < 0.015 C-Reactive Protein Total Protein Albumin Procalcitonin 0.05 Medications Administered Current Inpatient Medications Acetaminophen (Acetaminophen 325 Mg Tab) 650 mg PO Q6H PRN PRN Reason: pain or fever Stop: 07/26/20 00:08 Last Admin: 06/26/20 18:55 Dose: 650 mg Documented by: Albuterol (Albuterol Hfa 8 Gm Inhaler) 3 puffs INH Q4H PRN PRN Reason: sob Stop: 07/26/20 00:08 Benzonatate (Benzonatate 100 Mg Capsule) 100 mg PO TID PRN PRN Reason: cough Stop: 07/26/20 00:08 Last Admin: 06/26/20 18:56 Dose: 100 mg Documented by: Cetirizine HCl (Cetirizine Hcl 10 Mg Tablet) 10 mg PO QAM [facility] Stop: 07/26/20 08:59 Last Admin: 06/26/20 09:24 Dose: 10 mg Documented by: Enoxaparin Sodium (Enoxaparin Inj 40 Mg/0.4 Ml Syr) 40 mg SQ Q12H [facility] Stop: 07/26/20 08:59 Last Admin: 06/26/20 20:12 Dose: 40 mg Documented by: Dexamethasone 6 mg/ Syringe 1.5 mls @ 1 mls/min IV Q24H [facility] Stop: 07/26/20 08:59 Last Admin: 06/26/20 09:23 Dose: 1 mls/min Documented by: Remdesivir 100 mg/ Sodium (Chloride) 250 mls @ 250 mls/hr IV Q24H [facility]; Protocol Stop: 06/30/20 12:59 Azithromycin 250 mg/ Dextrose 252.5 mls @ 125 mls/hr IV Q24H [facility] Stop: 07/02/20 02:02 Ceftriaxone Sodium 2,000 mg/ (Dextrose) 70 mls @ 100 mls/hr IV Q24H [facility]; Protocol Stop: 07/03/20 01:59 Last Infusion: 06/26/20 06:02 Dose: Infused Documented by: Metoprolol Tartrate (Metoprolol Tartrate 1 Mg/Ml Vial) 5 mg IV Q4 PRN PRN Reason: tachycardia Stop: 07/26/20 19:59 Ondansetron HCl (Ondansetron Inj 2 Mg/Ml 2 Ml Vial) 4 mg IV Q6H PRN PRN Reason: Nausea Stop: 07/26/20 00:08 Pantoprazole Sodium (Pantoprazole 40 Mg Tab) 40 mg PO QAM [facility] Stop: 07/26/20 08:59 Last Admin: 06/26/20 09:24 Dose: 40 mg Documented by: Sodium Chloride (Sodium Chloride 0.9% 10ml Flush) 30 ml IV Q24H [facility] Stop: 06/30/20 12:01 PG Care Time/CCT Total # of Minutes Spent Total Time Spent with Patient: Total time spent is greater than 50% in coordination of care (as documented) at patient's floor/unit and/or counseling patient: Coding Level of Care Code 97473 Subseq Hosp Care Lvl 3 Diagnoses Pneumonia due to COVID-19 virus U07.1; J12.82 Hypoxia R09.02 Paroxysmal SVT (supraventricular tachycardia) I47.1 Heart palpitations R00.2 GERD (gastroesophageal reflux disease) K21.9 Esophagitis presence: esophagitis presence not specified (1) GERD (gastroesophageal reflux disease) Esophagitis presence: esophagitis presence not specified Qualified Code(s): K21.9 - Gastro-esophageal reflux disease without esophagitis
[2020-06-26] MEDS ORDERED: METOPROLOL TARTRATE 1 MG/ML VIAL IV PRN (18:49)
[2020-06-26 19:47] LABS: BUN Creatinine Ratio 12.6 (10-20); Blood Urea Nitrogen 14 mg/dl (7-18); Calcium 7.8 mg/dl (8.5-10.1); Carbon Dioxide 27 mmol/L (21-32); Chloride 110 mmol/L (98-107); Creatinine Clr Calc Pharmacy 81.1 ml/min; Est GFR (African American) 88.8; Est GFR (Non-African American) 76.7; Glucose 152 mg/dl (70-99); Magnesium 2.1 mg/dl (1.8-2.4); Potassium 3.6 mmol/L (3.5-5.1); Sodium 140 mmol/L (136-145)
[2020-06-26 19:51] LABS: Troponin I < 0.015 ng/ml (0-0.045)
[2020-06-26] MEDS: AZITHROMYCIN 250 MG in DEXTROSE 5% 250 ML IV SCH (23:50)
[2020-06-27] MEDS: cefTRIAXone SODIUM 2,000 MG in DEXTROSE 5% 50 ML IV SCH (01:57)
[2020-06-27 07:19] LABS: BUN Creatinine Ratio 17.6 (10-20); Calcium 7.6 mg/dl (8.5-10.1); Creatinine Clr Calc Pharmacy 92.3 ml/min; Est GFR (African American) 103.9; Est GFR (Non-African American) 89.6; Magnesium 2.2 mg/dl (1.8-2.4); Potassium 3.8 mmol/L (3.5-5.1)
[2020-06-27] MEDS: CETIRIZINE HCL 10 MG TABLET PO SCH (08:07)
[2020-06-27] MEDS: PANTOprazole 40 MG TAB PO SCH (08:07)
[2020-06-27] MEDS: dexAMETHasone 6 MG in SYRINGE 0 ML IV SCH (08:07)
[2020-06-27] MEDS: ENOXAPARIN INJ 40 MG/0.4 ML SYR SQ SCH ×2 (08:07→21:55)
--- NOTE | 2020-06-27 09:50 | Hospitalist Progress Note ---
Date of Service June 27, 2020 Assessment & Plan (1) Pneumonia due to COVID-19 virus: 59yo C male presenting with Covid-19 pneumonia, hypoxia. Patient is on day 11 of illness. Patient hypoxic requiring supplemental O2 stable on 2L for two days now, no distress, eating a lot more, drinking fluids continue dexamethasone 6mg IV daily, day 3 Remdesivir day 3 Zithromax and ceftriaxone day 3 Tylenol PRN supportive care try to wean oxygen as tolerated anticipate he will be here the weekend, ready to go on Tuesday/Tuesday depending on oxygen requirements (2) Hypoxia: acute hypoxia, due to COVID 19 mildly tachypneic but no distress, no labored breathing stable on 2L again today wean as tolerated (3) Paroxysmal SVT (supraventricular tachycardia): frequent runs of HR in the 140s but then converts back to sinus bradycardia, happened on 06/26 minimal symptoms but he is aware of alarms going off K is 3.8, Mg 2.2, troponin negative will consult cardiology use Lopressor 5mg IV q4 PRN only for sustained tachycardia, lasting more than a minute could be myocarditis or perhaps strain from coughing, labored breathing currently he is NSR/sinus bertin, no issues since 10pm last night (4) Heart palpitations: see SVT above (5) GERD (gastroesophageal reflux disease): Chronic. Stable -Continue Protonix F/E/N - Heplock. Monitor electrolytes. Regular diet as tolerated Ppx - Lovenox 40 BID Code - Full Dispo - Admit to medical Admission and Anticipated Discharge Date Admission Date: June 25, 2020 Subjective feeling a little better, breathing fine at rest, coughing less, no sputum production, no fever no diarrhea or vomiting, eating a lot better the past 24 hours reviewed tele, no SVT since 10pm last night, might have been coughing and dyspnea that triggered the episodes discussed that COVID can affect the heart sometimes with myocarditis/pericarditis will ask cardiology to see currently he is NSR, sinus bertin with rates 50-60's labs reviewed, K is 3.8, Cr normal, Mag normal, troponin last night was negative Review of Systems Review of Systems: All systems reviewed & are unremarkable except as noted in Subjective Physical Exam Constitutional: WD/WN, vitals as above no acute distress Neck: trachea midline, no thyromegaly Respiratory: normal respiratory effort, lungs clear to auscultation Cardiovascular: Rate/Rhythm: regular rhythm and + bradycardic Heart Sounds: normal S1 and normal S2; no murmur Extremities: normal capillary refill; no edema Gastrointestinal (Abdomen): normal bowel sounds, soft, nontender, no hepatosplenomegaly Musculoskeletal: no cyanosis or clubbing, extremities motor strength 5/5 Skin: no rashes, warm and dry Neurologic: patellar DTR's 2+ bilat, sensation intact and PERRL, EOMI, accommodation nl, no face palsy, no dysarthria Psychiatric: A+Ox3, euthymic affect Lymphatic: no cervical or axillary lymphadenopathy Results & Data Results & Data ([facility]) Vital Signs (Past 12 Hours) Vital Signs Temp Pulse Pulse Resp BP Pulse Ox 06/27/20 08:05 36.9 C 54 L 20 116/67 93 06/27/20 07:51 52 L 06/27/20 04:00 36.8 C 56 L 20 114/74 95 06/26/20 23:00 36.6 C 60 53 L 20 109/65 95 Laboratory Results Laboratory Results - last 24 hr 06/26/20 06/27/20 19:04 05:28 Sodium 140 142 Potassium 3.6 3.8 Chloride 110 H 111 H Carbon Dioxide 27 27 Anion Gap 4.0 4.0 BUN 14 D 17 Creatinine 1.07 0.94 Est Cr Clr Drug Dosing 81.1 92.3 Est GFR ( Amer) 88.8 103.9 Est GFR (Non-Af Amer) 76.7 89.6 BUN/Creatinine Ratio 12.6 17.6 Glucose 152 H 128 H Calcium 7.8 L 7.6 L Magnesium 2.1 2.2 Troponin I < 0.015 Medications Administered Current Inpatient Medications Acetaminophen (Acetaminophen 325 Mg Tab) 650 mg PO Q6H PRN PRN Reason: pain or fever Stop: 07/26/20 00:08 Last Admin: 06/26/20 18:55 Dose: 650 mg Documented by: Albuterol (Albuterol Hfa 8 Gm Inhaler) 3 puffs INH Q4H PRN PRN Reason: sob Stop: 07/26/20 00:08 Benzonatate (Benzonatate 100 Mg Capsule) 100 mg PO TID PRN PRN Reason: cough Stop: 07/26/20 00:08 Last Admin: 06/26/20 18:56 Dose: 100 mg Documented by: Cetirizine HCl (Cetirizine Hcl 10 Mg Tablet) 10 mg PO QAM [facility] Stop: 07/26/20 08:59 Last Admin: 06/27/20 08:07 Dose: 10 mg Documented by: Enoxaparin Sodium (Enoxaparin Inj 40 Mg/0.4 Ml Syr) 40 mg SQ Q12H [facility] Stop: 07/26/20 08:59 Last Admin: 06/27/20 08:07 Dose: 40 mg Documented by: Dexamethasone 6 mg/ Syringe 1.5 mls @ 1 mls/min IV Q24H [facility] Stop: 07/26/20 08:59 Last Admin: 06/27/20 08:07 Dose: 1 mls/min Documented by: Remdesivir 100 mg/ Sodium (Chloride) 250 mls @ 250 mls/hr IV Q24H [facility]; Protocol Stop: 06/30/20 12:59 Azithromycin 250 mg/ Dextrose 252.5 mls @ 125 mls/hr IV Q24H [facility] Stop: 07/02/20 02:02 Last Infusion: 06/27/20 01:59 Dose: Infused Documented by: Ceftriaxone Sodium 2,000 mg/ (Dextrose) 70 mls @ 100 mls/hr IV Q24H [facility]; Protocol Stop: 07/03/20 01:59 Last Infusion: 06/27/20 02:40 Dose: Infused Documented by: Metoprolol Tartrate (Metoprolol Tartrate 1 Mg/Ml Vial) 5 mg IV Q4 PRN PRN Reason: tachycardia Stop: 07/26/20 19:59 Ondansetron HCl (Ondansetron Inj 2 Mg/Ml 2 Ml Vial) 4 mg IV Q6H PRN PRN Reason: Nausea Stop: 07/26/20 00:08 Pantoprazole Sodium (Pantoprazole 40 Mg Tab) 40 mg PO QAM [facility] Stop: 07/26/20 08:59 Last Admin: 06/27/20 08:07 Dose: 40 mg Documented by: Sodium Chloride (Sodium Chloride 0.9% 10ml Flush) 30 ml IV Q24H [facility] Stop: 06/30/20 12:01 PG Care Time/CCT Total # of Minutes Spent Total Time Spent with Patient: Total time spent is greater than 50% in coordination of care (as documented) at patient's floor/unit and/or counseling patient: Coding Level of Care Code 74146 Subseq Hosp Care Lvl 2 Diagnoses Pneumonia due to COVID-19 virus U07.1; J12.82 Hypoxia R09.02 Paroxysmal SVT (supraventricular tachycardia) I47.1 Heart palpitations R00.2 GERD (gastroesophageal reflux disease) K21.9 Esophagitis presence: esophagitis presence not specified (1) GERD (gastroesophageal reflux disease) Esophagitis presence: esophagitis presence not specified Qualified Code(s): K21.9 - Gastro-esophageal reflux disease without esophagitis
[2020-06-27] MEDS: REMDESIVIR 100 MG in SODIUM CHLORIDE 0.9% 230 ML IV SCH (11:27)
[2020-06-27] MEDS: SODIUM CHLORIDE 0.9% 10ML FLUSH IV SCH (13:14)
--- NOTE | 2020-06-27 13:27 | Cardiology Consultation ---
Date of Consultation June 27, 2020 Assessment & Plan (1) Paroxysmal SVT (supraventricular tachycardia): -demonstrates numerous brief episodes of an SVT. -according to his history, this was not present prior to his COVID 19 infection. -echocardiogram on hold as troponin I levels are undetectable. (2) Heart palpitations: -also demonstrates PVCs, fusion beats, and PACs. (3) Pneumonia due to COVID-19 virus: -likely cause of his atrial dysrhythmias. -management per Dr. Rebollar. History of Present Illness Attending Physician: Van Rebollar, DO History of Present Illness Mr. Cantu is a 59-year-old male admitted on June 25 with COVID pneumonia. The patient has demonstrated some atrial dysrhythmias, and therefore, this consultation was ordered. The patient was in his usual state of health until he was diagnosed with a symptomatic COVID infection on June 16. Unfortunately, the patient's symptoms became progressive requiring 2 other emergency room evaluations for shortness of breath. The patient was also complaining of intermittent palpitations. An EKG performed on June 24 evaluation noted a PVC, fusion beats, and an atrial triplet. I did discuss his case with Nicolasa Monteiro PA-C from the emergency room on that day. We decided to arrange outpatient follow-up. On the morning of admission, the patient noted a significant amount of short- lived palpitations. Review of the monitor as noted many brief episodes of an SVT. Prior to his COVID infection, the patient never experienced palpitations. He was also on a vigorous exercise program which included lifting weights and bicycling. He did not experience exertional chest pain or limiting dyspnea at that time. He further denies syncope, presyncope, PND, orthopnea, lower extremity edema, and claudication. The patient has never known of a cardiac event. He has never had a cardiac catheterization or stress test. Past medical and surgical history 1. GERD 2. Umbilical hernia repair-November 2013 3. History of Mohs surgery Social history and lives with his Works as a software project engineer No tobacco Social alcohol Family history No early coronary artery disease Review of systems A 10 point review systems was negative except that described above. Allergies Allergy/AdvReac Type Severity Reaction Status Date / Time house dust Allergy Mild NASAL Verified 06/24/20 13:53 CONGESTION weed pollen Allergy Mild NASAL Verified 06/24/20 13:53 CONGESTION moxifloxacin [From Avelox] AdvReac Severe Rash Verified 06/24/20 13:53 cimetidine AdvReac Intermediate confusion, Verified 06/24/20 13:53 depression gluten AdvReac Intermediate BLOATING Verified 06/24/20 13:53 WITH WHEAT PRODUCTS Home Medications Medication Instructions Recorded Confirmed Type diphenhydramine HCl 25 mg capsule 25 mg PO HS PRN cap 11/09/18 06/25/20 History cetirizine 10 mg tablet 10 mg PO QAM #30 tab 06/25/19 06/25/20 Rx fluticasone propionate 1 sprays INTNAS BID 09/06/19 06/25/20 History albuterol sulfate 3 inh INHALATION Q6H #18 g 06/23/20 06/25/20 Rx aspirin 81 mg PO QAM 06/23/20 06/25/20 History azelastine 2 spray INTRANASAL DAILY PRN 06/23/20 06/25/20 History benzonatate [Tessalon Perles] 100 mg PO TID PRN #20 cap 06/23/20 06/25/20 Rx pantoprazole 40 mg PO QAM 06/23/20 06/25/20 History Patient History Medical History Anemia GERD (gastroesophageal reflux disease) Surgical History H/O wisdom tooth extraction History of anesthesia reaction BLURRED VISION, SWEATS, DIZZINESS,NAUSEA, TUNNEL VISION, POST OP MOHS NOSE UNDER LOCAL [id number] [facility] History of colonoscopy Incarcerated umbilical hernia (11/26/13) Status post Mohs surgery X 3-NOSE Family History (Updated 12/25/19 @ 11:22 by Cari Reardon MA) Father Diabetes Hypertension Heart disease Myocardial infarction Brother Myocardial infarction Mother Hyperlipidemia Hearing loss Breast cancer Denies family history of Ovarian cancer Prostate cancer Colorectal cancer Social History Smoking Status: Never smoker Second Hand Exposure: No; Hx Alcohol Use: No Hx Substance Use: No Preferred Language: Portuguese Communication Ability: Effective Visual Impairment: Limited Hearing Ability: Normal Completion Engineer Required: No Beliefs That Will Affect Care: None marital status: Current Living Situation: Family current occupational status: employed current occupation: electrical engineering designer Feels Safe at Home: Yes Childhood Exposure to Second-Hand Smoke: No caffeine: Yes during the past year weight has: remained stable Dental Care, Regularly: Yes Physical Activity Frequency: Daily Seatbelt Use: always Sunscreen Use: Yes Assistive Devices: Glasses and Oxygen - Continuous Physical Exam Physical Exam: Exam per Dr. Rebollar. Patient in COVID-19 isolation. Results & Data ([facility]) Vital Signs (Past 12 Hours) Vital Signs Temp Pulse Pulse Resp BP Pulse Ox 06/27/20 10:32 36.8 C 56 L 19 111/69 94 06/27/20 08:05 36.9 C 54 L 20 116/67 93 06/27/20 07:51 52 L 06/27/20 04:00 36.8 C 56 L 20 114/74 95 Laboratory Results CBC notes hemoglobin of 11.3, hematocrit 32.2, white count 1.8, platelet count [id number]. Electrolytes note a sodium of 142, potassium 3.8, chloride 111, bicarb 27, BUN 17, creatinine 0.94, glucose of 128. Magnesium level is normal at 2.2. Troponin I level is less than 0.015 x 3. TSH is normal at 1.29. BNP is normal at 208. Diagnostic Findings EKG done June 24 noted a PVC, a fusion be, an atrial triplet. EKG done the 25 of June noted sinus rhythm and a possible old inferior myocardial infarction. Chest x-ray notes diffuse bilateral infiltrates. PG Care Time/CCT Total # of Minutes Spent Total Time Spent with Patient: Total time spent is greater than 50% in coordination of care (as documented) at patient's floor/unit and/or counseling patient: Coding Level of Care Code 62406 Inpt Consult Level 4 Diagnoses Paroxysmal SVT (supraventricular tachycardia) I47.1 Heart palpitations R00.2 Pneumonia due to COVID-19 virus U07.1; J12.82
[2020-06-27] MEDS ORDERED: POLYETHYLENE (MIRALAX) 17 GM PACK PO PRN (23:42)
[2020-06-27] MEDS ORDERED: bisacodyL 10 MG SUPP PR PRN (23:42)
[2020-06-27] MEDS ORDERED: POLYETHYLENE (MIRALAX) 17 GM PACK PO ONE (23:43)
[2020-06-28] MEDS: AZITHROMYCIN 250 MG in DEXTROSE 5% 250 ML IV SCH ×2 (00:30→23:24)
[2020-06-28] MEDS: cefTRIAXone SODIUM 2,000 MG in DEXTROSE 5% 50 ML IV SCH (02:50)
[2020-06-28 07:02] LABS: BUN Creatinine Ratio 17.6 (10-20); Calcium 7.5 mg/dl (8.5-10.1); Creatinine Clr Calc Pharmacy 94.4 ml/min; Est GFR (African American) 106.6; Potassium 3.6 mmol/L (3.5-5.1)
--- NOTE | 2020-06-28 07:36 | Hospitalist Progress Note ---
Date of Service June 28, 2020 Assessment & Plan (1) Pneumonia due to COVID-19 virus: 59yo C male presenting with Covid-19 pneumonia, hypoxia. Patient is on day 11 of illness. Patient hypoxic requiring supplemental O2 stable on 2L for three days now, no distress, eating a lot more, drinking fluids continue dexamethasone 6mg IV daily, day 4 Remdesivir day 4 Zithromax and ceftriaxone day 4 Tylenol PRN supportive care try to wean oxygen as tolerated anticipate he will be ready for discharge early to mid week next week (2) Hypoxia: acute hypoxia, due to COVID 19 mildly tachypneic but no distress, no labored breathing stable on 2L since admission, but cannot get him down to room air try to wean as tolerated (3) Paroxysmal SVT (supraventricular tachycardia): frequent runs of HR in the 140s but then converts back to sinus bradycardia, happened on 06/26 minimal symptoms but he is aware of alarms going off K is 3.6, troponin negative will consult cardiology -- get echo after discharge, likely that pneumonia is triggering the SVT could be myocarditis or perhaps strain from coughing, labored breathing currently he is NSR/sinus bertin, no issues since 10pm on 06/26 (4) Heart palpitations: see SVT above (5) GERD (gastroesophageal reflux disease): Chronic. Stable -Continue Protonix F/E/N - Heplock. Monitor electrolytes. Regular diet as tolerated Ppx - Lovenox 40 BID Code - Full Dispo - Admit to medical (6) Constipated: no success with Miralax, can increase to BID until he moves bowels warm prune juice with butter push oral fluids Admission and Anticipated Discharge Date Admission Date: June 25, 2020 Subjective patient c/o feeling dry in his nose, will get him saline spray c/o constipation, feeling a little bloated, tried Miralax and RN got him prune juice still feeling fatigued, short of breath on exertion no fever, no cough, no chest pain, no diarrhea, no vomiting labs reviewed, Cr is 0.9, BUN 16, K 3.6 discussed that he will be here a few more days no SVT on monitor, discussed that we can get an echo after discharge, likely the COVID triggering the SVT, d/w cardiology, Dr. Ch Review of Systems Review of Systems: All systems reviewed & are unremarkable except as noted in Subjective Physical Exam Constitutional: WD/WN, vitals as above no acute distress Neck: trachea midline, no thyromegaly Respiratory: normal respiratory effort, lungs clear to auscultation Cardiovascular: Rate/Rhythm: regular rhythm and + bradycardic Heart Sounds: normal S1 and normal S2; no murmur Extremities: normal capillary refill; no edema Gastrointestinal (Abdomen): normal bowel sounds, soft, nontender, no hepatosplenomegaly Musculoskeletal: no cyanosis or clubbing, extremities motor strength 5/5 Skin: no rashes, warm and dry Neurologic: patellar DTR's 2+ bilat, sensation intact and PERRL, EOMI, accommodation nl, no face palsy, no dysarthria Psychiatric: A+Ox3, euthymic affect Lymphatic: no cervical or axillary lymphadenopathy Results & Data Results & Data ([facility]) Vital Signs (Past 12 Hours) Vital Signs Temp Pulse Pulse Resp BP Pulse Ox 06/28/20 03:25 37.4 C 51 L 20 107/62 95 06/27/20 23:06 37.3 C 53 L 20 114/69 93 06/27/20 22:20 51 L 06/27/20 19:38 36.9 C 54 L 20 107/65 96 Laboratory Results Laboratory Results - last 24 hr 06/28/20 06:13 Sodium 141 Potassium 3.6 Chloride 108 H Carbon Dioxide 28 Anion Gap 4.0 BUN 16 Creatinine 0.92 Est Cr Clr Drug Dosing 94.4 Est GFR ( Amer) 106.6 Est GFR (Non-Af Amer) 92.0 BUN/Creatinine Ratio 17.6 Glucose 114 H Calcium 7.5 L Medications Administered Current Inpatient Medications Acetaminophen (Acetaminophen 325 Mg Tab) 650 mg PO Q6H PRN PRN Reason: pain or fever Stop: 07/26/20 00:08 Last Admin: 06/26/20 18:55 Dose: 650 mg Documented by: Albuterol (Albuterol Hfa 8 Gm Inhaler) 3 puffs INH Q4H PRN PRN Reason: sob Stop: 07/26/20 00:08 Benzonatate (Benzonatate 100 Mg Capsule) 100 mg PO TID PRN PRN Reason: cough Stop: 07/26/20 00:08 Last Admin: 06/26/20 18:56 Dose: 100 mg Documented by: Bisacodyl (Bisacodyl 10 Mg Supp) 10 mg [place] DAILY PRN PRN Reason: Constipation Stop: 07/27/20 23:41 Cetirizine HCl (Cetirizine Hcl 10 Mg Tablet) 10 mg PO QAM [facility] Stop: 07/26/20 08:59 Last Admin: 06/27/20 08:07 Dose: 10 mg Documented by: Enoxaparin Sodium (Enoxaparin Inj 40 Mg/0.4 Ml Syr) 40 mg SQ Q12H [facility] Stop: 07/26/20 08:59 Last Admin: 06/27/20 21:55 Dose: 40 mg Documented by: Dexamethasone 6 mg/ Syringe 1.5 mls @ 1 mls/min IV Q24H [facility] Stop: 07/26/20 08:59 Last Admin: 06/27/20 08:07 Dose: 1 mls/min Documented by: Remdesivir 100 mg/ Sodium (Chloride) 250 mls @ 250 mls/hr IV Q24H [facility]; Protocol Stop: 06/30/20 12:59 Last Infusion: 06/27/20 12:53 Dose: Infused Documented by: Azithromycin 250 mg/ Dextrose 252.5 mls @ 125 mls/hr IV Q24H [facility] Stop: 07/02/20 02:02 Last Infusion: 06/28/20 02:50 Dose: Infused Documented by: Ceftriaxone Sodium 2,000 mg/ (Dextrose) 70 mls @ 100 mls/hr IV Q24H [facility]; Protocol Stop: 07/03/20 01:59 Last Infusion: 06/28/20 03:35 Dose: Infused Documented by: Metoprolol Tartrate (Metoprolol Tartrate 1 Mg/Ml Vial) 5 mg IV Q4 PRN PRN Reason: tachycardia Stop: 07/26/20 19:59 Ondansetron HCl (Ondansetron Inj 2 Mg/Ml 2 Ml Vial) 4 mg IV Q6H PRN PRN Reason: Nausea Stop: 07/26/20 00:08 Pantoprazole Sodium (Pantoprazole 40 Mg Tab) [facility] Stop: 07/26/20 08:59 Last Admin: 06/27/20 08:07 Dose: 40 mg Documented by: Polyethylene Glycol (Polyethylene (Miralax) 17 Gm Pack) 17 gm PO DAILY PRN PRN Reason: Constipation Stop: 05/02/21 23:41 Sodium Chloride (Sodium Chloride 0.9% 10ml Flush) 30 ml IV Q24H [facility] Stop: 06/30/20 12:01 Last Admin: 06/27/20 13:14 Dose: 30 ml Documented by: PG Care Time/CCT Total # of Minutes Spent Total Time Spent with Patient: Total time spent is greater than 50% in coordi nation of care (as documented) at patient's floor/unit and/or counseling patient: Coding Level of Care Code 66586 Subseq Hosp Care Lvl 3 Diagnoses Pneumonia due to COVID-19 virus U07.1; J12.82 Hypoxia R09.02 Paroxysmal SVT (supraventricular tachycardia) I47.1 Heart palpitations R00.2 GERD (gastroesophageal reflux disease) K21.9 Esophagitis presence: esophagitis presence not specified Constipated K59.00 (1) GERD (gastroesophageal reflux disease) Esophagitis presence: esophagitis presence not specified Qualified Code(s): K21.9 - Gastro-esophageal reflux disease without esophagitis
[2020-06-28] MEDS: CETIRIZINE HCL 10 MG TABLET PO SCH (09:08)
[2020-06-28] MEDS: ENOXAPARIN INJ 40 MG/0.4 ML SYR SQ SCH ×2 (09:08→22:02)
[2020-06-28] MEDS: dexAMETHasone 6 MG in SYRINGE 0 ML IV SCH (09:08)
[2020-06-28] MEDS: PANTOprazole 40 MG TAB PO SCH (09:08)
[2020-06-28] MEDS ORDERED: SODIUM CHLORIDE 0.65% NA SOLN 45 ML (OCEAN) PRN (10:30)
[2020-06-28] MEDS ORDERED: POLYETHYLENE (MIRALAX) 17 GM PACK PO PRN (10:30)
[2020-06-28] MEDS: REMDESIVIR 100 MG in SODIUM CHLORIDE 0.9% 230 ML IV SCH (11:42)
[2020-06-28] MEDS: SODIUM CHLORIDE 0.9% 10ML FLUSH IV SCH (11:44)
[2020-06-28] MEDS ORDERED: POTASSIUM CHLORIDE CRTAB 20 MEQ TABCR PO STA (18:40)
[2020-06-29] MEDS: cefTRIAXone SODIUM 2,000 MG in DEXTROSE 5% 50 ML IV SCH (01:36)
[2020-06-29 06:58] LABS: Creatinine Clr Calc Pharmacy 104.6 ml/min; Est GFR (African American) 113.2; Est GFR (Non-African American) 97.7
--- NOTE | 2020-06-29 08:30 | Hospitalist Progress Note ---
Date of Service June 29, 2020 Assessment & Plan (1) Pneumonia due to COVID-19 virus: 59yo C male presenting with Covid-19 pneumonia, hypoxia. Patient is on day 11 of illness. Patient hypoxic requiring supplemental O2 stable on 2L for three days now, no distress, eating a lot more, drinking fluids continue dexamethasone 6mg IV daily, day 5 Remdesivir day 5 Zithromax and ceftriaxone day 5, no further doses needed Tylenol PRN supportive care try to wean oxygen as tolerated, down to room air at rest today, no distress, sats 89-91% anticipate he will be ready for discharge tomorrow, will order a two step for the morning (2) Hypoxia: acute hypoxia, due to COVID 19 mildly tachypneic but no distress, no labored breathing stable on 2L since admission, 06/29 he is weaned to room air at rest, 90% will get two step tomorrow (3) Paroxysmal SVT (supraventricular tachycardia): frequent runs of HR in the 140s but then converts back to sinus bradycardia, happened on 06/26 minimal symptoms but he is aware of alarms going off K is 3.6, troponin negative will consult cardiology -- get echo after discharge, likely that pneumonia is triggering the SVT could be myocarditis or perhaps strain from coughing, labored breathing currently he is NSR/sinus bertin, no issues since 10pm on 06/26 please have him get echo as outpatient, PCP can order, not urgent (4) Heart palpitations: see SVT above (5) GERD (gastroesophageal reflux disease): Chronic. Stable -Continue Protonix F/E/N - Heplock. Monitor electrolytes. Regular diet as tolerated Ppx - Lovenox 40 BID Code - Full Dispo - plan for discharge tomorrow afternoon, get two step in the morning (6) Constipated: no success with Miralax, can increase to BID until he moves bowels warm prune juice with butter push oral fluids Admission and Anticipated Discharge Date Admission Date: June 25, 2020 Subjective patient feeling better today, breathing easier he took his oxygen off for about 15 minutes to wash up, took heart monitor off as well did not feel short of breath while standing at the sink he is eating well, moving his bowels, making urine Cr is stable today he was 96% on 2L when I came to see him, took him off oxygen, he was 89-91% at rest the whole time I was in the room, no distress told him that we can plan on two step tomorrow morning and can likely go in the afternoon he agrees with this plan, will complete Remdesivir while here and can go home on oral Decadron Review of Systems Review of Systems: All systems reviewed & are unremarkable except as noted in Subjective Physical Exam Constitutional: WD/WN, vitals as above no acute distress Neck: trachea midline, no thyromegaly Respiratory: normal respiratory effort, lungs clear to auscultation Cardiovascular: Rate/Rhythm: regular rhythm and + bradycardic Heart Sounds: normal S1 and normal S2; no murmur Extremities: normal capillary refill; no edema Gastrointestinal (Abdomen): normal bowel sounds, soft, nontender, no hepatospl enomegaly Musculoskeletal: no cyanosis or clubbing, extremities motor strength 5/5 Skin: no rashes, warm and dry Neurologic: patellar DTR's 2+ bilat, sensation intact and PERRL, EOMI, accommodation nl, no face palsy, no dysarthria Psychiatric: A+Ox3, euthymic affect Lymphatic: no cervical or axillary lymphadenopathy Results & Data Results & Data ([facility]) Vital Signs (Past 12 Hours) Vital Signs Temp Pulse Pulse Resp BP Pulse Ox 06/29/20 07:56 36.9 C 48 L 18 115/79 93 06/29/20 03:38 37.0 C 46 L 20 117/77 91 06/28/20 23:29 36.8 C 51 L 20 117/68 92 06/28/20 22:20 49 L Laboratory Results Laboratory Results - last 24 hr 06/29/20 05:21 Creatinine 0.83 Est Cr Clr Drug Dosing 104.6 Est GFR ( Amer) 113.2 Est GFR (Non-Af Amer) 97.7 Medications Administered Current Inpatient Medications Acetaminophen (Acetaminophen 325 Mg Tab) 650 mg PO Q6H PRN PRN Reason: pain or fever Stop: 07/26/20 00:08 Last Admin: 06/26/20 18:55 Dose: 650 mg Documented by: Albuterol (Albuterol Hfa 8 Gm Inhaler) 3 puffs INH Q4H PRN PRN Reason: sob Stop: 07/26/20 00:08 Benzonatate (Benzonatate 100 Mg Capsule) 100 mg PO TID PRN PRN Reason: cough Stop: 07/26/20 00:08 Last Admin: 06/26/20 18:56 Dose: 100 mg Documented by: Bisacodyl (Bisacodyl 10 Mg Supp) 10 mg [place] DAILY PRN PRN Reason: Constipation Stop: 07/27/20 23:41 Cetirizine HCl (Cetirizine Hcl 10 Mg Tablet) [facility] Stop: 07/26/20 08:59 Last Admin: 06/28/20 09:08 Dose: 10 mg Documented by: Enoxaparin Sodium (Enoxaparin Inj 40 Mg/0.4 Ml Syr) 40 mg SQ Q12H [facility] Stop: 07/26/20 08:59 Last Admin: 06/28/20 22:02 Dose: 40 mg Documented by: Dexamethasone 6 mg/ Syringe 1.5 mls @ 1 mls/min IV Q24H [facility] Stop: 07/26/20 08:59 Last Admin: 06/28/20 09:08 Dose: 1 mls/min Documented by: Remdesivir 100 mg/ Sodium (Chloride) 250 mls @ 250 mls/hr IV Q24H [facility]; Protocol Stop: 06/30/20 12:59 Last Infusion: 06/28/20 13:00 Dose: Infused Documented by: Azithromycin 250 mg/ Dextrose 252.5 mls @ 125 mls/hr IV Q24H [facility] Stop: 07/02/20 02:02 Last Infusion: 06/29/20 01:37 Dose: Infused Documented by: Ceftriaxone Sodium 2,000 mg/ (Dextrose) 70 mls @ 100 mls/hr IV Q24H [facility]; Protocol Stop: 07/03/20 01:59 Last Infusion: 06/29/20 02:20 Dose: Infused Documented by: Metoprolol Tartrate (Metoprolol Tartrate 1 Mg/Ml Vial) 5 mg IV Q4 PRN PRN Reason: tachycardia Stop: 07/26/20 19:59 Ondansetron HCl (Ondansetron Inj 2 Mg/Ml 2 Ml Vial) 4 mg IV Q6H PRN PRN Reason: Nausea Stop: 07/26/20 00:08 Pantoprazole Sodium (Pantoprazole 40 Mg Tab) 40 mg PO [facility] Stop: 07/26/20 08:59 Last Admin: 06/28/20 09:08 Dose: 40 mg Documented by: Polyethylene Glycol (Polyethylene (Miralax) 17 Gm Pack) 17 gm PO BID PRN PRN Reason: Constipation Stop: 07/27/20 23:41 Last Admin: 06/28/20 17:51 Dose: 17 gm Documented by: Sodium Chloride (Sodium Chloride 0.9% 10ml Flush) 30 ml IV Q24H [facility] Stop: 06/30/20 12:01 Last Admin: 06/28/20 11:44 Dose: 30 ml Documented by: Sodium Chloride (Sodium Chloride 0.65% Na Soln 45 Ml ([place])) 1 sprays NA Q1H PRN PRN Reason: dry nose Stop: 07/28/20 10:29 Last Admin: 06/28/20 16:11 Dose: 1 sprays Documented by: PG Care Time/CCT Total # of Minutes Spent Total Time Spent with Patient: Total time spent is greater than 50% in coordination of care (as documented) at patient's floor/unit and/or counseling patient: Coding Level of Care Code 67554 Subseq Hosp Care Lvl 2 Diagnoses Pneumonia due to COVID-19 virus U07.1; J12.82 Hypoxia R09.02 Paroxysmal SVT (supraventricular tachycardia) I47.1 Heart palpitations R00.2 GERD (gastroesophageal reflux disease) K21.9 Esophagitis presence: esophagitis presence not specified Constipated K59.00 (1) GERD (gastroesophageal reflux disease) Esophagitis presence: esophagitis presence not specified Qualified Code(s): K21.9 - Gastro-esophageal reflux disease without esophagitis
[2020-06-29] MEDS: ENOXAPARIN INJ 40 MG/0.4 ML SYR SQ SCH ×2 (08:49→21:29)
[2020-06-29] MEDS: dexAMETHasone 6 MG in SYRINGE 0 ML IV SCH (08:49)
[2020-06-29] MEDS: CETIRIZINE HCL 10 MG TABLET PO SCH (08:49)
[2020-06-29] MEDS: PANTOprazole 40 MG TAB PO SCH (08:49)
[2020-06-29] MEDS: REMDESIVIR 100 MG in SODIUM CHLORIDE 0.9% 230 ML IV SCH (11:45)
[2020-06-29] MEDS: SODIUM CHLORIDE 0.9% 10ML FLUSH IV SCH (11:46)
[2020-06-29] MEDS ORDERED: dexAMETHasone 4 MG TAB PO ONE (12:30)
[2020-06-29] MEDS: AZITHROMYCIN 250 MG in DEXTROSE 5% 250 ML IV SCH (23:56)
[2020-06-30] MEDS: cefTRIAXone SODIUM 2,000 MG in DEXTROSE 5% 50 ML IV SCH (02:34)
[2020-06-30] MEDS: ENOXAPARIN INJ 40 MG/0.4 ML SYR SQ SCH (08:44)
[2020-06-30] MEDS: CETIRIZINE HCL 10 MG TABLET PO SCH (08:44)
[2020-06-30] MEDS: PANTOprazole 40 MG TAB PO SCH (08:44)
[2020-06-30] MEDS ORDERED: dexAMETHasone 4 MG TAB PO SCH (09:00)
[2020-06-30] MEDS: REMDESIVIR 100 MG in SODIUM CHLORIDE 0.9% 230 ML IV SCH (11:41)
[2020-06-30] MEDS: SODIUM CHLORIDE 0.9% 10ML FLUSH IV SCH (11:42)
--- NOTE | 2020-06-30 12:31 | Discharge Summary ---
Date of Service June 30, 2020 Admission HPI Per Admitting Provider Thomas Cantu is a healthy 59yo C male presenting with Covid-19. His symptoms began appx 9 days ago with fatigue, body aches, fever, cough and shortness of breath. Symptoms have persisted over the last 9 days. Patient states he has been febrile x 9 days. His cough and SOB have worsened over the last 2 days. He has been having heart palpitations as well. He states he occasionally coughs up small amounts of blood tinged sputum. He has been monitoring his oxygen saturation at home and reports that this AM he was 88% on room air. In the ER he was found to be tachypneic. Saturations 92% on room air. Patient dyspneic after ambulation with saturation of 87% ER Course: Tylenol, Albuterol, Guaifenesin, Dexamethasone, Toradol 15mg, NSS x 2L Principal Diagnosis Covid-19 pneumonia, acute respiratory failure with hypoxia, paroxysmal SVT Discharge Exam Constitutional WD/WN, vitals as above Eyes + anicteric sclerae Neck trachea midline, no thyromegaly Respiratory normal respiratory effort Auscultation: + crackles (At lower lung garcia bilaterally); no rhonchi and no wheezes Cardiovascular Rate/Rhythm: regular rhythm and + bradycardic Heart Sounds: no murmur Extremities: no calf tenderness and no edema Chest (Breasts) Chest: normal inspection of chest Gastrointestinal (Abdomen) normal bowel sounds, soft, nontender, no hepatosplenomegaly Musculoskeletal Extremities: extremities normal to inspection; no cyanosis and no clubbing Skin no rashes, warm and dry Neurologic moves all extremities and awake; no focal motor deficits Psychiatric A+Ox3, euthymic affect Lymphatic no lymphedema Discharge Data Allergies Allergy/AdvReac Type Severity Reaction Status Date / Time house dust Allergy Mild NASAL Verified 06/24/20 13:53 CONGESTION weed pollen Allergy Mild NASAL Verified 06/24/20 13:53 CONGESTION moxifloxacin [From Avelox] AdvReac Severe Rash Verified 06/24/20 13:53 cimetidine AdvReac Intermediate confusion, Verified 06/24/20 13:53 depression gluten AdvReac Intermediate BLOATING Verified 06/24/20 13:53 WITH WHEAT PRODUCTS Consultations 06/25/20 20:53 ED Decision to Admit Stat 06/26/20 18:49 Consult Cardiology Routine Ordered Studies 06/25/20 17:47 CT angio chest PE protocol Stat Chest x-ray Hospital Course (1) Pneumonia due to COVID-19 virus: 59yo C male presenting with Covid-19 pneumonia, hypoxia. Patient is on day 12 of illness and is now doing better. Patient hypoxic requiring supplemental O2-he dropped to 87% with talking at rest and was requiring 2 L nasal cannula at the time of discharge, however his oxygen level does stay at 89% when he walks around. He does qualify for 2 L nasal cannula upon discharge to be worn continuously. He has a home pulse oximeter he will use. Encouraged continued use of incentive spirometry. He is eating and drinking well, moving his bowels. Ambulating independently. He received dexamethasone 6mg IV daily x6 days here and will finish out 4 more days as an outpatient with oral dexamethasone He completed a 5-day course of remdesivir He also completed a 5-day course of Zithromax and ceftriaxone Stable for discharge to home (2) Hypoxia: acute hypoxia, due to COVID 19 Much improved but still requiring 2 L nasal cannula as above Wean off at home with guidance of PCP after discharge Continue to finish out 10-day course of dexamethasone (3) Paroxysmal SVT (supraventricular tachycardia): frequent runs of HR in the 140s but then converts back to sinus bradycardia, happened on 06/26 minimal symptoms but he is aware of alarms going off-none further in several days K is 3.6, troponin negative Consulted cardiology -- get echo after discharge, likely that pneumonia is triggering the SVT could be myocarditis or perhaps strain from coughing, labored breathing, but troponin was negative currently he is NSR/sinus bertin, no issues since 10pm on 06/26 please have him get echo as outpatient, this was ordered by cardiology prior to discharge (4) Heart palpitations: see SVT above (5) Constipated: Now resolved with MiraLAX and prune juice (6) GERD (gastroesophageal reflux disease): Chronic. Stable. With mid to distal esophageal wall thickening seen on CT scan of the chest He just had an EGD in 08/2019 that was normal Continue follow-up with PCP and GI -Continue Protonix Ppx - Lovenox 40 BID Code - Full Dispo -stable for discharge to home with home O2 Total Time Total Time Spent Total Time Spent (In Minutes): 35 minutes Total Time Includes: Examination of the Patient, Discharge Planning, Medication Reconciliation and Communication With Other Providers (Cardiology, Dr. Ch) Discharge Plan Discharge Items Patient Disposition: Home - Self-Care Reason For Visit: COVID-19 PNA Discharge Diagnosis: Covid-19 pneumonia, acute respiratory failure with hypoxia, supraventricular tachycardia (SVT) Condition on Discharge: Fair Activity: As commented below Lifting: Gradually increase as tolerated Bathing: No limitations Exercise/Sports: Gradually increase as tolerated Non-emergency contact: Primary Care Provider Call non-emergency contact if: you have any medication questions, your symptoms worsen and your pain is concerning for you Follow-up/Referrals: Harley Ch MD [Physician] - (Dr. Ch's office should be contacting you with the appointment date and time of your echocardiogram.) Rufus Ghotra MD [Primary Care Provider] - (Please follow-up within 1 to 2 weeks.) Diet: Regular Addtl Attending Provider Instructions: Please finish out the course of dexamethasone at home. If you develop worsening shortness of breath, chest pains, leg swelling or calf pain, or your oxygen levels drop below 88%, please return to the hospital. You should remain on 2 L of oxygen continuously via the nasal cannula until you follow-up with your doctor. Pending Studies at Discharge: No Stand-Alone Forms: My [facility] Medications and DC Order Prescriptions: New dexamethasone 6 mg tablet 6 mg PO DAILY Qty: 4 RF: 0 Continued cetirizine 10 mg tablet 10 mg PO QAM Qty: 30 RF: 5 diphenhydramine HCl 25 mg capsule 25 mg PO HS PRN (Reason: allergy symptoms) RF: 0 fluticasone propionate 50 mcg/actuation spray,suspension 1 sprays INTNAS BID RF: 0 aspirin 81 mg Tablet,Delayed Release (Dr/Ec) 81 mg PO QAM RF: 0 pantoprazole 40 mg tablet,delayed release (DR/EC) 40 mg PO QAM RF: 0 azelastine 137 mcg (0.1 %) aerosol,spray 2 spray intranasal DAILY PRN (Reason: Allergy Symptoms) RF: 0 benzonatate [Tessalon Perles] 100 mg capsule 100 mg PO TID PRN (Reason: cough) Qty: 20 RF: 1 albuterol sulfate 90 mcg/actuation HFA aerosol inhaler 3 inh inhalation Q6H Qty: 18 RF: 2 Discharge Orders: Discharge Order (Routine); Ordered 06/30/20 Ordered By: Brittanie Crenshaw Admission Data Admit Date/Time: 06/25/20 22:04 Attending Provider: Brittanie Crenshaw Admit Provider: Anuja Plaza Primary Care Provider: Rufus Ghotra Other Providers: Anuja Plaza ; Harley Ch Coding Level of Care Code D/C Day Management >30 mins Diagnoses Pneumonia due to COVID-19 virus U07.1; J12.82 Hypoxia R09.02 Paroxysmal SVT (supraventricular tachycardia) I47.1 Heart palpitations R00.2 Constipated K59.00 GERD (gastroesophageal reflux disease) K21.9 Esophagitis presence: esophagitis presence not specified
--- NOTE | 2020-06-30 12:59 | Cardiology Progress Note ---
Date of Service June 30, 2020 Assessment & Plan (1) Paroxysmal SVT (supraventricular tachycardia): -demonstrates numerous brief episodes of an SVT (3 and 4 beats in length). -according to his history, this was not present prior to his COVID 19 infection. -echocardiogram in 1-2 weeks. -follow-up with me as an outpatient. (2) Heart palpitations: -also demonstrates PVCs, fusion beats, and PACs. (3) Pneumonia due to COVID-19 virus: -likely cause of his atrial dysrhythmias. -management per Dr. Crenshaw. Admission and Anticipated Discharge Date Admission Date: June 25, 2020 Subjective The patient continues to improve. Denies recent palpitations. A dyspnea is improving. Physical Exam Physical Exam: Exam per Dr. Crenshaw. Patient in COVID-19 isolation. Results & Data ([facility]) Vital Signs (Past 12 Hours) Vital Signs Temp Pulse Pulse Pulse Pulse Pulse Resp 06/30/20 11:13 63 57 L 63 06/30/20 11:03 36.4 C L 53 L 18 06/30/20 09:11 06/30/20 07:20 45 L 06/30/20 07:15 37.1 C 68 18 06/30/20 04:05 36.8 C 49 L 18 Resp Resp Resp BP Pulse Ox Pulse Ox Pulse Ox 06/30/20 11:13 24 20 20 89 L 90 06/30/20 11:03 127/81 90 06/30/20 09:11 90 06/30/20 07:20 06/30/20 07:15 119/61 92 06/30/20 04:05 147/80 H 97 Pulse Ox 06/30/20 11:13 92 06/30/20 11:03 06/30/20 09:11 06/30/20 07:20 06/30/20 07:15 06/30/20 04:05 PG Care Time/CCT Total # of Minutes Spent Total Time Spent with Patient: Total time spent is greater than 50% in coordination of care (as documented) at patient's floor/unit and/or counseling patient: Coding Level of Care Code 16784 Subseq Hosp Care Lvl 3 Diagnoses Paroxysmal SVT (supraventricular tachycardia) I47.1 Heart palpitations R00.2 Pneumonia due to COVID-19 virus U07.1; J12.82
== END 2020-06-30 15:18 | disposition home or self-care (01) | DRG 177 ==
LOC: ED 14:45 → 2E 22:04 → SUATTDRO 22:04 → 2E 23:24